=== PATIENT | female | born 1945 | race Caucasian/White ===

== ENCOUNTER 2021-05-07 16:57 | Emergency (ER) | payer MEDICARE, MEDICAID ==
[2021-05-07 18:26] LABS: ALT (SGPT) 16 U/L (8-55); AST (SGOT) 12 U/L (5-34); Albumin 3.6 g/dL (3.4-4.8); Alkaline Phosphatase 146 U/L (40-110); Anion Gap 13 mmol/L (10-20); BUN (Urea Nitrogen) 25 mg/dL (9.8-20.1); Bilirubin, Total 0.5 mg/dL (0.2-1.2); Calc. Creatinine Clearance 0 mL/min (70-130); Calcium 9.4 mg/dL (7.8-10.44); Carbon Dioxide 27 mmol/L (23-31); Chloride 102 mmol/L (98-107); Globulin 3.3 g/dL (2.4-3.5); Glucose 164 mg/dL (83-110); Potassium 4.4 mmol/L (3.5-5.1); Protein, Total 6.9 g/dL (5.8-8.1); Sodium 138 mmol/L (136-145)
[2021-05-07 18:29] LABS: Lipase Less than 4 U/L (8-78)
[2021-05-07 18:32] LABS: Bilirubin Negative (Negative); Blood, Urine Negative (Negative); Glucose, Urine (Dipstick) Negative (Negative); Ketone, Urine Negative (Negative); Leukocyte Trace (Negative); Nitrite Positive (Negative); Protein, Urine (Dipstick) Negative (Neg-Trace); Specific Gravity, Urine 1.025 (1.005-1.030); Urobilinogen 0.2 mg/dL (Less than 2); pH, Urine 6.5 (5.0-9.0)
[2021-05-07 18:35] LABS: Clarity SL HAZY (Clear)
[2021-05-07 18:40] LABS: Bacteria/HPF 4+ HPF (None Seen); RBC/HPF 0-3 HPF (0-3)
[2021-05-07 18:45] LABS: Hemoglobin 12.3 g/dL (12.0-16.0); Lymphocytes 13 % (21-51); MDiff Complete? YES; Mean Corpuscular HGB CONC 31.9 g/dL (32.0-36.0); Mean Corpuscular Hemoglobin 27.1 pg (27.0-31.0); Mean Corpuscular Volume 84.9 fL (78.0-98.0); Mean Platelet Volume 6.6 fL (7.4-10.4); Monocytes 9 % (0-10); Neutrophil 74 % (42-75); Nucleated RBC 1 % (0); Platelet Count 328 thou/uL (130-400); Platelet Morphology Comment Appears Adequate; RBC Distribution Width 15.1 % (11.5-14.5); Reactive Lymphocytes 4 % (0-10); Red Blood Cell (RBC) Count 4.54 mill/uL (4.20-5.40); White Blood Cell (WBC) Count 11.4 thou/uL (4.8-10.8)
[2021-05-07 18:46] LABS: Amphetamine Not Detected (NotDetected); Barbiturates Screen Not Detected (NotDetected); Benzodiazepine Screen Not Detected (NotDetected); Cocaine Metabolite Screen Not Detected (NotDetected); Medtox Control Line Valid? VALID (VALID); Methadone Not Detected (NotDetected); Methamphetamine Not Detected (NotDetected); Opiate Screen Detected (NotDetected); Oxycodone Screen Not Detected (NotDetected); Phencyclidine (PCP) Not Detected (NotDetected); THC/Cannabinoid Screen Not Detected (NotDetected); Tricyclic Screen Not Detected (NotDetected)
[2021-05-07] MEDS ORDERED: HYDROcodone/Acetaminophen 7.5/325 mg Tablet ONE (18:59)
[2021-05-07] MEDS ORDERED: Ketorolac Tromethamine 60 MG/2 ML VIAL ONE (19:01)
[2021-05-07] MEDS ORDERED: Ketorolac Tromethamine 30 MG/ML VIAL ONE (19:02)
[2021-05-08 00:48] LABS: SARS-CoV-2 PCR by NAA Not Detected (NotDetected)
== END 2021-05-07 22:10 | disposition home or self-care (01) ==
LOC: NAV ERS 16:57
DX: S22.42XA Multiple fractures of ribs, left side, initial encounter for closed fracture (principal); S40.021A Contusion of right upper arm, initial encounter; G89.29 Other chronic pain; M54.50 Low back pain, unspecified; M79.605 Pain in left leg; M79.604 Pain in right leg; E66.01 Morbid (severe) obesity due to excess calories; R19.7 Diarrhea, unspecified; R06.2 Wheezing; R53.81 Other malaise; R53.83 Other fatigue; E11.9 Type 2 diabetes mellitus without complications; K21.9 Gastro-esophageal reflux disease without esophagitis; E78.5 Hyperlipidemia, unspecified; E78.00 Pure hypercholesterolemia, unspecified; I10 Essential (primary) hypertension; Z20.822 Contact with and (suspected) exposure to COVID-19; Z87.891 Personal history of nicotine dependence; Z79.01 Long term (current) use of anticoagulants; Z79.899 Other long term (current) drug therapy; W19.XXXA Unspecified fall, initial encounter
CPT/HCPCS: 51701; 80053; 80306; 81003; 81015; 83690; 85025; 87077; 87086; 87186; 96372; J1885; U0003; U0005

== ENCOUNTER 2021-05-08 08:54 | Observation (INO) | payer MEDICARE, MEDICAID ==
[2021-05-08 09:53] LABS: ALT (SGPT) 15 U/L (8-55); AST (SGOT) 20 U/L (5-34); Albumin 3.4 g/dL (3.4-4.8); Alkaline Phosphatase 146 U/L (40-110); Anion Gap 16 mmol/L (10-20); BUN (Urea Nitrogen) 31 mg/dL (9.8-20.1); Bilirubin, Total 0.6 mg/dL (0.2-1.2); CK (CPK) 30 U/L (29-168); Calc. Creatinine Clearance 0 mL/min (70-130); Calcium 9.1 mg/dL (7.8-10.44); Carbon Dioxide 25 mmol/L (23-31); Chloride 102 mmol/L (98-107); Globulin 3.6 g/dL (2.4-3.5); Potassium 4.9 mmol/L (3.5-5.1)
[2021-05-08 09:56] LABS: Band 4 % (5-11); Hemoglobin 11.7 g/dL (12.0-16.0); Lymphocytes 7 % (21-51); MDiff Complete? YES; Mean Corpuscular Hemoglobin 27.2 pg (27.0-31.0); Mean Platelet Volume 7.1 fL (7.4-10.4); Monocytes 5 % (0-10); Neutrophil 82 % (42-75); Platelet Count 319 thou/uL (130-400); RBC Distribution Width 14.8 % (11.5-14.5); RBC Morphology Normal; Reactive Lymphocytes 2 % (0-10); Red Blood Cell (RBC) Count 4.28 mill/uL (4.20-5.40); White Blood Cell (WBC) Count 12.2 thou/uL (4.8-10.8)
[2021-05-08] MEDS ORDERED: Sodium Chloride 0.9% 100 ML ONE (09:57)
[2021-05-08] MEDS ORDERED: Azithromycin 500 MG VIAL ONE ×2 (09:57→09:59)
[2021-05-08] MEDS ORDERED: Sodium Chloride 0.9% 250 ML 250 ML ONE (09:57)
[2021-05-08] MEDS ORDERED: methylPREDNISolone Sod Succ/PF 125 MG/2 ML VIAL ONE (09:57)
[2021-05-08] MEDS ORDERED: cefTRIAXone\\ROCEPHIN 1 GM VIAL ONE (09:57)
[2021-05-08 09:59] LABS: Glucose 220 mg/dL (83-110); Sodium 138 mmol/L (136-145)
[2021-05-08] MEDS ORDERED: FLU VACC QS2021-22(65YR UP)/PF 240 MCG/0.7 ML SYRINGE IM ONE (15:15)
[2021-05-08] MEDS ORDERED: HYDROcodone/Acetaminophen 5/325 mg Tablet PO PRN (16:12)
[2021-05-08] MEDS ORDERED: methylPREDNISolone Sod Succ/PF 125 MG/2 ML VIAL IVP SCH (16:15)
[2021-05-08] MEDS ORDERED: Ondansetron PF 4 MG/2 ML Vial IVP PRN ×3 (16:15→21:28)
[2021-05-08] MEDS ORDERED: Ondansetron ODT 4 MG TAB SL PRN ×2 (16:15→21:25)
[2021-05-08] MEDS ORDERED: Acetaminophen 325 MG TAB PO PRN ×2 (16:15→21:26)
[2021-05-08] MEDS ORDERED: Albuterol Sulfate 2.5 mg/3 ml Neb NEB PRN ×2 (16:18→21:28)
[2021-05-08] MEDS ORDERED: Calcium Carbonate 500 MG ChewTAB PO PRN (18:15)
[2021-05-08] MEDS ORDERED: Senokot S 8.6-50 MG TAB PO PRN (18:15)
[2021-05-08] MEDS ORDERED: Loperamide HCl 2 MG CAP PO PRN ×4 (18:15)
[2021-05-08] MEDS ORDERED: Sodium Chloride 0.65% Nasal 44 ML BOT EA NARE PRN (18:15)
[2021-05-08] MEDS ORDERED: Eucerin (Mineral Oil/Petrolatum,White) 30 gm Jar TOP PRN (18:15)
[2021-05-08] MEDS ORDERED: Dextrose 50% Abboject 50 ML SYRINGE SLOW IVP PRN (18:15)
[2021-05-08] MEDS ORDERED: Artificial Tear Sol 15 ML BOT EA EYE PRN (18:15)
[2021-05-08] MEDS ORDERED: Bisacodyl 10 MG SUPP PR PRN (18:15)
[2021-05-08] MEDS ORDERED: Bisacodyl 5 MG TAB PO PRN (18:15)
[2021-05-08] MEDS: Cefdinir 300 MG CAP PO SCH (20:45)
[2021-05-08] MEDS: Apixaban 5 MG TAB PO SCH (20:46)
[2021-05-08] MEDS: Furosemide 40 MG TAB PO SCH (20:46)
[2021-05-08] MEDS: HumaLOG 300 UNITS/3 ML VIAL SC PRN (20:55)
[2021-05-08] MEDS ORDERED: Gabapentin 300 MG CAP PO SCH (21:00)
[2021-05-08] MEDS: HYDROcodone/Acetaminophen 5/325 mg Tablet PO PRN (22:12)
[2021-05-08] MEDS: methylPREDNISolone Sod Succ/PF 125 MG/2 ML VIAL IVP SCH (23:41)
[2021-05-09] MEDS: methylPREDNISolone Sod Succ/PF 125 MG/2 ML VIAL IVP SCH ×2 (05:31→11:38)
[2021-05-09 06:18] VITALS: BMI 37.5
[2021-05-09 06:23] LABS: #Lymphocytes 0.7 thou/uL (1.20-3.40); #Monocytes 0.2 thou/uL (0.11-0.59); #Neutrophils 12.8 thou/uL (1.40-6.50); %Basophils 0.1 % (0.0-1.0); %Lymphocytes 5.4 % (21.0-51.0); %Monocytes 1.3 % (0.0-10.0); %Neutrophils 93.2 % (42.0-75.0); Hemoglobin 11.9 g/dL (12.0-16.0); Mean Corpuscular HGB CONC 31.7 g/dL (32.0-36.0); Mean Corpuscular Hemoglobin 27.2 pg (27.0-31.0); Mean Corpuscular Volume 85.8 fL (78.0-98.0); Mean Platelet Volume 6.6 fL (7.4-10.4); Platelet Count 302 thou/uL (130-400); RBC Distribution Width 14.7 % (11.5-14.5); Red Blood Cell (RBC) Count 4.38 mill/uL (4.20-5.40); White Blood Cell (WBC) Count 13.7 thou/uL (4.8-10.8)
[2021-05-09 06:39] LABS: ALT (SGPT) 14 U/L (8-55); AST (SGOT) 10 U/L (5-34); Albumin 3.5 g/dL (3.4-4.8); Alkaline Phosphatase 143 U/L (40-110); Anion Gap 16 mmol/L (10-20); BUN (Urea Nitrogen) 27 mg/dL (9.8-20.1); Bilirubin, Total 0.5 mg/dL (0.2-1.2); Calc. Creatinine Clearance 64 mL/min (70-130); Calcium 9.7 mg/dL (7.8-10.44); Carbon Dioxide 25 mmol/L (23-31); Chloride 98 mmol/L (98-107); Globulin 3.4 g/dL (2.4-3.5); Glucose 423 mg/dL (83-110); Potassium 3.7 mmol/L (3.5-5.1); Protein, Total 6.9 g/dL (5.8-8.1)
[2021-05-09 06:49] LABS: Sodium 135 mmol/L (136-145)
[2021-05-09] MEDS: Cefdinir 300 MG CAP PO SCH (08:51)
[2021-05-09] MEDS: Apixaban 5 MG TAB PO SCH (08:51)
[2021-05-09] MEDS: Furosemide 40 MG TAB PO SCH (08:52)
[2021-05-09] MEDS: Pantoprazole 40 MG GRANULES PACKET PO SCH ×2 (08:56→10:32)
[2021-05-09] MEDS ORDERED: Atorvastatin Calcium 20 MG TAB PO SCH (09:00)
[2021-05-09] MEDS ORDERED: Azithromycin 250 MG TAB PO SCH (09:00)
[2021-05-09] MEDS ORDERED: Amlodipine 10 MG TAB PO SCH (09:00)
[2021-05-09] MEDS ORDERED: Non-Formulary Item 1 EACH (Insulin Degludec [Tresiba Flextouch U-200] 200 UNIT/ML Insuln. SC SCH (09:00)
[2021-05-09] MEDS ORDERED: Lantus 1000 UNITS/10 ML VIAL SC SCH (09:00)
[2021-05-09] MEDS ORDERED: Lanolin Alcohol/MO/W.Pet/Ceres 57 GM CR TP PRN (10:45)
[2021-05-09] MEDS: HYDROcodone/Acetaminophen 5/325 mg Tablet PO PRN (11:36)
[2021-05-09] MEDS: HumaLOG 300 UNITS/3 ML VIAL SC PRN (11:38)
[2021-05-09 12:11] VITALS: BP 178/87; TEMP 97.4
== END 2021-05-09 15:50 | disposition home or self-care (01) ==
LOC: NAV ERS 08:54 → NAV ACUTE 12:23
PROVIDERS: ADMIT Family Medicine; ATTEND Family Medicine
DX: J44.1 Chronic obstructive pulmonary disease with (acute) exacerbation (principal); S22.49XA Multiple fractures of ribs, unspecified side, initial encounter for closed fracture; I10 Essential (primary) hypertension; E78.00 Pure hypercholesterolemia, unspecified; E11.40 Type 2 diabetes mellitus with diabetic neuropathy, unspecified; K21.9 Gastro-esophageal reflux disease without esophagitis; E66.9 Obesity, unspecified; Z68.37 Body mass index [BMI] 37.0-37.9, adult; Z79.01 Long term (current) use of anticoagulants; Z79.4 Long term (current) use of insulin; Z79.899 Other long term (current) drug therapy; Z87.891 Personal history of nicotine dependence
CPT/HCPCS: 36415; 36416; 71045; 71046; 80053; 82550; 83605; 83880; 84484; 85025; 87040; 93005; 94760; 96376; G0378; J0456; J0696; J1815; J2930; J3490; J7050; J7620

== ENCOUNTER 2021-06-07 05:55 | Emergency (ER) | payer MEDICARE, MEDICAID ==
[2021-06-07 07:15] LABS: #Eosinphils 0.2 thou/uL (0.0-0.7); #Monocytes 0.7 thou/uL (0.11-0.59); #Neutrophils 8.6 thou/uL (1.40-6.50); %Basophils 0.4 % (0.0-1.0); %Eosinophils 1.6 % (0.0-10.0); %Lymphocytes 17.4 % (21.0-51.0); %Monocytes 5.9 % (0.0-10.0); %Neutrophils 74.7 % (42.0-75.0); Hemoglobin 10.8 g/dL (12.0-16.0); Mean Corpuscular HGB CONC 30.7 g/dL (32.0-36.0); Mean Corpuscular Hemoglobin 26.5 pg (27.0-31.0); Mean Corpuscular Volume 86.3 fL (78.0-98.0); Mean Platelet Volume 6.6 fL (7.4-10.4); Platelet Count 314 thou/uL (130-400); RBC Distribution Width 14.6 % (11.5-14.5); Red Blood Cell (RBC) Count 4.07 mill/uL (4.20-5.40); White Blood Cell (WBC) Count 11.5 thou/uL (4.8-10.8)
[2021-06-07 07:30] LABS: ALT (SGPT) 12 U/L (8-55); AST (SGOT) 7 U/L (5-34); Albumin 3.4 g/dL (3.4-4.8); Alkaline Phosphatase 162 U/L (40-110); Anion Gap 13 mmol/L (10-20); BUN (Urea Nitrogen) 30 mg/dL (9.8-20.1); Bilirubin, Total 0.3 mg/dL (0.2-1.2); Calc. Creatinine Clearance 0 mL/min (70-130); Calcium 9.2 mg/dL (7.8-10.44); Carbon Dioxide 27 mmol/L (23-31); Chloride 100 mmol/L (98-107); Glucose 359 mg/dL (83-110); Lipase 11 U/L (8-78); Potassium 4.2 mmol/L (3.5-5.1); Protein, Total 6.4 g/dL (5.8-8.1); Sodium 136 mmol/L (136-145)
[2021-06-07] MEDS ORDERED: Fentanyl 100 MCG/2 ML VIAL ONE (07:39)
[2021-06-07] MEDS ORDERED: Sodium Chloride 0.9% 500 ML ONE (07:40)
[2021-06-07] MEDS ORDERED: Iopamidol 370 76% 100 ML VIAL ONE (09:00)
[2021-06-07 09:48] LABS: Bilirubin Negative (Negative); Blood, Urine Negative (Negative); Clarity Clear (Clear); Glucose, Urine (Dipstick) 500 mg/dL (Negative); Ketone, Urine Negative (Negative); Leukocyte Negative (Negative); Nitrite Negative (Negative); Protein, Urine (Dipstick) Negative (Neg-Trace); Urobilinogen 0.2 mg/dL (Less than 2); pH, Urine 5.5 (5.0-9.0)
== END 2021-06-07 13:00 | disposition home or self-care (01) ==
LOC: NAV ERS 05:55
DX: M54.50 Low back pain, unspecified (principal); R10.9 Unspecified abdominal pain; E11.9 Type 2 diabetes mellitus without complications; K21.9 Gastro-esophageal reflux disease without esophagitis; E78.5 Hyperlipidemia, unspecified; E78.00 Pure hypercholesterolemia, unspecified; I10 Essential (primary) hypertension; R53.1 Weakness; Z79.01 Long term (current) use of anticoagulants; Z79.899 Other long term (current) drug therapy; Z87.891 Personal history of nicotine dependence
CPT/HCPCS: 51701; 74177; 80053; 81003; 83690; 85025; 96374; J3010; J7030; Q9967

== ENCOUNTER 2021-07-27 11:54 | Emergency (ER) | payer MEDICARE, MEDICAID ==
[2021-07-27] MEDS ORDERED: Fentanyl 100 MCG/2 ML VIAL ONE (13:33)
== END 2021-07-27 15:58 | disposition home or self-care (01) ==
LOC: NAV ERS 11:54
DX: M54.50 Low back pain, unspecified (principal); E11.9 Type 2 diabetes mellitus without complications; K21.9 Gastro-esophageal reflux disease without esophagitis; E78.5 Hyperlipidemia, unspecified; I10 Essential (primary) hypertension; Z87.891 Personal history of nicotine dependence; Z79.899 Other long term (current) drug therapy; Z79.01 Long term (current) use of anticoagulants
CPT/HCPCS: 72100; 96374; J3010

== ENCOUNTER 2021-08-24 03:11 | Emergency (ER) | payer MEDICARE, MEDICAID ==
[2021-08-24] MEDS ORDERED: Acetaminophen 500 MG TAB ONE (03:41)
[2021-08-24 03:46] LABS: #Eosinphils 0.1 thou/uL (0.0-0.7); #Lymphocytes 1.1 thou/uL (1.20-3.40); #Monocytes 0.6 thou/uL (0.11-0.59); %Basophils 0.3 % (0.0-1.0); %Eosinophils 1.3 % (0.0-10.0); %Lymphocytes 11.1 % (21.0-51.0); %Neutrophils 81.3 % (42.0-75.0); Hemoglobin 10.6 g/dL (12.0-16.0); Mean Corpuscular HGB CONC 31.2 g/dL (32.0-36.0); Mean Corpuscular Hemoglobin 25.5 pg (27.0-31.0); Mean Corpuscular Volume 81.7 fL (78.0-98.0); Mean Platelet Volume 7.9 fL (7.4-10.4); Platelet Count 185 thou/uL (130-400); RBC Distribution Width 16.5 % (11.5-14.5); Red Blood Cell (RBC) Count 4.17 mill/uL (4.20-5.40); White Blood Cell (WBC) Count 9.9 thou/uL (4.8-10.8)
[2021-08-24 03:59] LABS: INR-International Normal Ratio 1.5; Prothrombin Time 18.6 sec (12.0-14.7)
[2021-08-24 04:00] LABS: PTT 45.6 sec (22.9-36.1)
[2021-08-24 04:04] LABS: Anion Gap 19 mmol/L (10-20); BUN (Urea Nitrogen) 21 mg/dL (9.8-20.1); Calc. Creatinine Clearance 0 mL/min (70-130); Calcium 9.3 mg/dL (7.8-10.44); Carbon Dioxide 16 mmol/L (23-31); Chloride 108 mmol/L (98-107); Glucose 176 mg/dL (83-110); Potassium 3.6 mmol/L (3.5-5.1); Sodium 139 mmol/L (136-145)
[2021-08-24 05:38] LABS: Base Excess-Venous -1.7 mmol/L (-2.0 to 3.0); CO2 Tension (PvCO2) 37.8 mmHg (42.0-51.0); Hemoglobin - Calc 10.6 g/dL (12.0-16.0)
[2021-08-24 05:39] LABS: Calcium, Ionized 1.05 mmol/L (1.15-1.33); Chloride 106 mmol/L (98-107); Potassium 3.7 mmol/L (3.5-5.1); Sodium 142 mmol/L (138-145); T. Carbon Dioxide 24.1 mmol/L (22.0-28.0)
== END 2021-08-24 06:12 | disposition home or self-care (01) ==
LOC: NAV ERS 03:11
DX: S42.212A Unspecified displaced fracture of surgical neck of left humerus, initial encounter for closed fracture (principal); S70.02XA Contusion of left hip, initial encounter; S80.212A Abrasion, left knee, initial encounter; S80.211A Abrasion, right knee, initial encounter; I10 Essential (primary) hypertension; E78.5 Hyperlipidemia, unspecified; E78.00 Pure hypercholesterolemia, unspecified; E11.9 Type 2 diabetes mellitus without complications; K21.9 Gastro-esophageal reflux disease without esophagitis; W06.XXXA Fall from bed, initial encounter; Z87.891 Personal history of nicotine dependence; Z79.01 Long term (current) use of anticoagulants; Z79.899 Other long term (current) drug therapy
CPT/HCPCS: 70450; 72170; 80048; 82330; 82803; 85025; 85610; 85730

== ENCOUNTER 2021-08-27 16:59 | Emergency (ER) | payer MEDICARE, MEDICAID ==
[~2021-08-27 16:59] MED LIST: Iopamidol 370 76% 100 ML VIAL ONE
[2021-08-27] MEDS ORDERED: Acetaminophen 500 MG TAB ONE (18:37)
== END 2021-08-27 19:55 | disposition home or self-care (01) ==
LOC: NAV ERS 16:59
DX: M54.50 Low back pain, unspecified (principal); G89.29 Other chronic pain; I10 Essential (primary) hypertension; E11.9 Type 2 diabetes mellitus without complications; K21.9 Gastro-esophageal reflux disease without esophagitis; E78.5 Hyperlipidemia, unspecified; E78.00 Pure hypercholesterolemia, unspecified; J44.9 Chronic obstructive pulmonary disease, unspecified; Z79.01 Long term (current) use of anticoagulants; Z79.899 Other long term (current) drug therapy
CPT/HCPCS: 74177; 99283; Q9967

== ENCOUNTER 2021-08-30 00:27 | Emergency (ER) | payer MEDICARE, MEDICAID ==
[2021-08-30 01:31] LABS: #Monocytes 0.8 thou/uL (0.11-0.59); #Neutrophils 4.3 thou/uL (1.40-6.50); %Basophils 1.2 % (0.0-1.0); %Eosinophils 6.1 % (0.0-10.0); %Lymphocytes 21.8 % (21.0-51.0); %Neutrophils 59.9 % (42.0-75.0); Hemoglobin 11.7 g/dL (12.0-16.0); Manual Diff?? NO; Mean Corpuscular HGB CONC 30.2 g/dL (32.0-36.0); Mean Corpuscular Hemoglobin 24.5 pg (27.0-31.0); Mean Corpuscular Volume 81.2 fL (78.0-98.0); Mean Platelet Volume 6.8 fL (7.4-10.4); Platelet Count 311 thou/uL (130-400); RBC Distribution Width 16.7 % (11.5-14.5); Red Blood Cell (RBC) Count 4.77 mill/uL (4.20-5.40); White Blood Cell (WBC) Count 7.2 thou/uL (4.8-10.8)
[2021-08-30 01:32] LABS: #Basophils 0.1 thou/uL (0.0-0.2); #Eosinphils 0.4 thou/uL (0.0-0.7); MDiff Complete? YES
[2021-08-30] MEDS ORDERED: Sodium Chloride 0.9% 1,000 ML ONE (01:43)
[2021-08-30 01:59] LABS: BUN (Urea Nitrogen) 19 mg/dL (9.8-20.1); Carbon Dioxide 23 mmol/L (23-31); Chloride 105 mmol/L (98-107); Potassium 4.9 mmol/L (3.5-5.1); Sodium 142 mmol/L (136-145)
[2021-08-30 02:00] LABS: ALT (SGPT) 21 U/L (8-55); AST (SGOT) 31 U/L (5-34); Albumin 4.1 g/dL (3.4-4.8); Alkaline Phosphatase 141 U/L (40-110); Anion Gap 14 mmol/L (10-20); Bilirubin, Total 0.6 mg/dL (0.2-1.2); Calc. Creatinine Clearance 0 mL/min (70-130); Calcium 9.6 mg/dL (7.8-10.44); Globulin 3.6 g/dL (2.4-3.5); Glucose 136 mg/dL (83-110); Lipase 4 U/L (8-78); Protein, Total 7.7 g/dL (5.8-8.1)
[2021-08-30 02:08] LABS: Bilirubin Small (Negative); Blood, Urine Trace (Negative); Clarity Cloudy (Clear); Glucose, Urine (Dipstick) Negative (Negative); Ketone, Urine Negative (Negative); Leukocyte Negative (Negative); Nitrite Negative (Negative); Protein, Urine (Dipstick) 30 mg/dL (Neg-Trace); Specific Gravity, Urine 1.029 (1.002-1.036); Urobilinogen 0.2 mg/dL (Less than 2); pH, Urine 5.5 (5.0-9.0)
[2021-08-30 02:09] LABS: Bacteria/HPF None Seen HPF (None Seen); RBC/HPF 0-3 HPF (0-3); Yeast-Budding 3+ HPF (None Seen)
[2021-08-30] MEDS ORDERED: Iopamidol 370 76% 100 ML VIAL ONE (09:00)
== END 2021-08-30 04:20 | disposition home or self-care (01) ==
LOC: NAV ERS 00:27
DX: K44.9 Diaphragmatic hernia without obstruction or gangrene (principal); I10 Essential (primary) hypertension; G89.29 Other chronic pain; M54.50 Low back pain, unspecified; R11.0 Nausea; J44.9 Chronic obstructive pulmonary disease, unspecified; K21.9 Gastro-esophageal reflux disease without esophagitis; E78.5 Hyperlipidemia, unspecified; E78.00 Pure hypercholesterolemia, unspecified; Z79.01 Long term (current) use of anticoagulants; Z79.899 Other long term (current) drug therapy
CPT/HCPCS: 51701; 81003; 81015; 83605; 83690; 87086; J7050; Q9967

== ENCOUNTER 2021-09-01 05:02 | Inpatient (IN) | payer MEDICARE, MEDICAID ==
[2021-09-01] MEDS ORDERED: Ondansetron ODT 4 MG TAB ONE (06:04)
[2021-09-01 06:17] LABS: Bilirubin Negative (Negative); Blood, Urine Trace (Negative); Clarity Clear (Clear); Glucose, Urine (Dipstick) Negative (Negative); Ketone, Urine Negative (Negative); Leukocyte Trace (Negative); Nitrite Positive (Negative); Protein, Urine (Dipstick) Trace mg/dL (Neg-Trace); Urobilinogen 0.2 mg/dL (Less than 2); pH, Urine 5.5 (5.0-9.0)
[2021-09-01 06:23] LABS: Bacteria/HPF 3+ HPF (None Seen); Specific Gravity, Urine 1.023 (1.002-1.036)
[2021-09-01 06:50] LABS: #Basophils 0.1 thou/uL (0.0-0.2); #Eosinphils 0.3 thou/uL (0.0-0.7); #Lymphocytes 1.2 thou/uL (1.20-3.40); #Monocytes 0.5 thou/uL (0.11-0.59); #Neutrophils 4.4 thou/uL (1.40-6.50); %Basophils 0.9 % (0.0-1.0); %Eosinophils 4.4 % (0.0-10.0); %Lymphocytes 18.1 % (21.0-51.0); %Monocytes 7.6 % (0.0-10.0); Hemoglobin 11.6 g/dL (12.0-16.0); Mean Corpuscular HGB CONC 29.8 g/dL (32.0-36.0); Mean Corpuscular Hemoglobin 24.8 pg (27.0-31.0); Mean Corpuscular Volume 83.4 fL (78.0-98.0); Mean Platelet Volume 6.2 fL (7.4-10.4); Platelet Count 209 thou/uL (130-400); RBC Distribution Width 17.4 % (11.5-14.5); Red Blood Cell (RBC) Count 4.65 mill/uL (4.20-5.40); White Blood Cell (WBC) Count 6.4 thou/uL (4.8-10.8)
[2021-09-01 06:54] LABS: ALT (SGPT) 17 U/L (8-55); AST (SGOT) 20 U/L (5-34); Albumin 3.8 g/dL (3.4-4.8); Alkaline Phosphatase 122 U/L (40-110); Anion Gap 15 mmol/L (10-20); BUN (Urea Nitrogen) 19 mg/dL (9.8-20.1); Bilirubin, Total 0.6 mg/dL (0.2-1.2); Calc. Creatinine Clearance 0 mL/min (70-130); Calcium 9.3 mg/dL (7.8-10.44); Carbon Dioxide 24 mmol/L (23-31); Chloride 110 mmol/L (98-107); Glucose 125 mg/dL (83-110); Potassium 3.8 mmol/L (3.5-5.1); Protein, Total 6.8 g/dL (5.8-8.1); Sodium 145 mmol/L (136-145)
[2021-09-01] MEDS ORDERED: Nitrofurantoin Macrocrystal 50 MG CAP ONE (07:06)
[2021-09-01 07:20] LABS: Anisocytosis MODERATE=16-30 cells (100X) (0-5/hpf); Hypochromia SLIGHT = 6-15 cells (100X) (0-5/hpf); MDiff Complete? YES; Platelet Morphology Comment Appears Adequate
[2021-09-01 08:02] LABS: SARS-CoV-2 NAA Rapid Test Not Detected (NotDetected)
[2021-09-01] MEDS ORDERED: Ondansetron ODT 4 MG TAB PO PRN ×2 (08:13→09:45)
[2021-09-01 08:47] VITALS: BMI 33.5
[2021-09-01] MEDS ORDERED: Apixaban 5 MG TAB PO SCH (09:00)
[2021-09-01] MEDS ORDERED: traMADol HCl 50 MG TAB PO PRN ×2 (09:41)
[2021-09-01] MEDS ORDERED: Guaifenesin DM 100-10/5 ML UDCUP PO PRN (09:45)
[2021-09-01] MEDS ORDERED: Loperamide HCl 2 MG CAP PO PRN ×2 (09:45)
[2021-09-01] MEDS ORDERED: Promethazine HCl 25 MG SUPP PR PRN (09:45)
[2021-09-01] MEDS ORDERED: Dextrose 50% Abboject 50 ML SYRINGE SLOW IVP PRN (09:45)
[2021-09-01] MEDS ORDERED: Ondansetron PF 4 MG/2 ML Vial IVP PRN (09:45)
[2021-09-01] MEDS ORDERED: traMADol HCl 50 MG TAB PO SCH (09:45)
[2021-09-01] MEDS ORDERED: Acetaminophen 325 MG TAB PO PRN (09:45)
[2021-09-01] MEDS ORDERED: Bisacodyl 5 MG TAB PO PRN (09:45)
[2021-09-01] MEDS ORDERED: Cepastat Lozenges 1 LOZ PO PRN (09:45)
[2021-09-01] MEDS ORDERED: Artificial Tear Sol 15 ML BOT EA EYE PRN (09:45)
[2021-09-01] MEDS ORDERED: Sodium Chloride 0.65% Nasal 44 ML BOT EA NARE PRN (09:45)
[2021-09-01] MEDS ORDERED: Benzonatate 100 MG CAP PO PRN (09:45)
[2021-09-01] MEDS ORDERED: Senokot S 8.6-50 MG TAB PO PRN (09:45)
[2021-09-01] MEDS: Amlodipine 10 MG TAB PO SCH (09:45)
[2021-09-01] MEDS ORDERED: Acetaminophen 650 MG Suppository PR PRN (09:45)
[2021-09-01] MEDS: Apixaban 5 MG TAB PO SCH ×4 (09:45→20:49)
[2021-09-01] MEDS: Nitrofurantoin Monohyd/M-Cryst 100 MG CAP PO SCH ×2 (09:45→20:49)
[2021-09-01] MEDS: Furosemide 40 MG TAB PO SCH ×2 (09:45→14:48)
[2021-09-01] MEDS ORDERED: Calcium Carbonate 500 MG ChewTAB PO PRN (09:45)
[2021-09-01] MEDS ORDERED: Bisacodyl 10 MG SUPP PR PRN (09:45)
[2021-09-01] MEDS: HYDROcodone/Acetaminophen 5/325 mg Tablet PO PRN ×2 (12:50→16:55)
[2021-09-01] MEDS: HumaLOG 300 UNITS/3 ML VIAL SC PRN ×2 (13:04→16:57)
[2021-09-01] MEDS: Mag-Al Plus 1200 MG/1200 MG/120 MG/30 ML UDCUP PO SCH (16:55)
[2021-09-01] MEDS: Mometasone/Formoterol 200/5 60 PUFF INH SCH (17:02)
[2021-09-01] MEDS: Famotidine 20 MG TAB PO SCH (20:48)
[2021-09-01] MEDS: Atorvastatin Calcium 20 MG TAB PO SCH (20:49)
[2021-09-01] MEDS: Gabapentin 300 MG CAP PO SCH (20:49)
[2021-09-01] MEDS ORDERED: Famotidine/PF 20 mg/2ml Vial SLOW IVP SCH (21:00)
[2021-09-01] MEDS ORDERED: Ondansetron ODT 4 MG TAB SL PRN (22:45)
[2021-09-02] MEDS: Mometasone/Formoterol 200/5 60 PUFF INH SCH ×2 (05:27→17:23)
[2021-09-02 07:52] LABS: Hemoglobin 10.7 g/dL (12.0-16.0); Mean Corpuscular Hemoglobin 25.3 pg (27.0-31.0); Mean Corpuscular Volume 81.7 fL (78.0-98.0); Mean Platelet Volume 6.3 fL (7.4-10.4); Platelet Count 422 thou/uL (130-400); Red Blood Cell (RBC) Count 4.23 mill/uL (4.20-5.40); White Blood Cell (WBC) Count 6.5 thou/uL (4.8-10.8)
[2021-09-02 07:56] LABS: %Basophils 1.1 % (0.0-1.0); %Eosinophils 9.3 % (0.0-10.0); %Lymphocytes 28.2 % (21.0-51.0); %Monocytes 10.9 % (0.0-10.0); %Neutrophils 50.5 % (42.0-75.0)
[2021-09-02 07:59] LABS: #Lymphocytes 1.8 thou/uL (1.20-3.40); #Neutrophils 3.3 thou/uL (1.40-6.50)
[2021-09-02 08:00] LABS: #Basophils 0.1 thou/uL (0.0-0.2); #Eosinphils 0.6 thou/uL (0.0-0.7); #Monocytes 0.7 thou/uL (0.11-0.59)
[2021-09-02 08:02] LABS: Anion Gap 17 mmol/L (10-20); BUN (Urea Nitrogen) 20 mg/dL (9.8-20.1); Calc. Creatinine Clearance 88 mL/min (70-130); Calcium 9.3 mg/dL (7.8-10.44); Carbon Dioxide 27 mmol/L (23-31); Chloride 102 mmol/L (98-107); Glucose 97 mg/dL (83-110); Potassium 3.8 mmol/L (3.5-5.1); Sodium 142 mmol/L (136-145)
[2021-09-02] MEDS: Amlodipine 10 MG TAB PO SCH (08:39)
[2021-09-02] MEDS: Apixaban 5 MG TAB PO SCH ×2 (08:39→20:34)
[2021-09-02] MEDS: Furosemide 40 MG TAB PO SCH ×2 (08:39→13:57)
[2021-09-02] MEDS: Nitrofurantoin Monohyd/M-Cryst 100 MG CAP PO SCH ×2 (08:40→20:33)
[2021-09-02] MEDS: Mag-Al Plus 1200 MG/1200 MG/120 MG/30 ML UDCUP PO SCH ×3 (08:40→17:19)
[2021-09-02] MEDS: Lantus 1000 UNITS/10 ML VIAL SC SCH (08:40)
[2021-09-02] MEDS: Famotidine 20 MG TAB PO SCH ×2 (08:43→20:34)
[2021-09-02] MEDS ORDERED: Non-Formulary Item 1 EACH (Insulin Degludec [Tresiba Flextouch U-200] 200 UNIT/ML Insuln. SQ SCH (09:00)
[2021-09-02] MEDS: HYDROcodone/Acetaminophen 5/325 mg Tablet PO PRN (09:33)
[2021-09-02] MEDS: Gabapentin 300 MG CAP PO SCH (20:34)
[2021-09-02] MEDS: Atorvastatin Calcium 20 MG TAB PO SCH (20:34)
[2021-09-03] MEDS: Mometasone/Formoterol 200/5 60 PUFF INH SCH ×2 (05:44→17:58)
[2021-09-03 06:52] LABS: Anion Gap 17 mmol/L (10-20); BUN (Urea Nitrogen) 24 mg/dL (9.8-20.1); Calc. Creatinine Clearance 81 mL/min (70-130); Calcium 9.4 mg/dL (7.8-10.44); Carbon Dioxide 28 mmol/L (23-31); Chloride 101 mmol/L (98-107); Glucose 105 mg/dL (83-110); Potassium 4.1 mmol/L (3.5-5.1); Sodium 142 mmol/L (136-145)
[2021-09-03 07:07] LABS: Mean Corpuscular HGB CONC 30.2 g/dL (32.0-36.0); Mean Corpuscular Hemoglobin 24.9 pg (27.0-31.0); Mean Corpuscular Volume 82.2 fL (78.0-98.0); Platelet Count 475 thou/uL (130-400); RBC Distribution Width 17.4 % (11.5-14.5); Red Blood Cell (RBC) Count 4.43 mill/uL (4.20-5.40); White Blood Cell (WBC) Count 7.4 thou/uL (4.8-10.8)
[2021-09-03 07:10] LABS: #Basophils 0.1 thou/uL (0.0-0.2); #Eosinphils 0.6 thou/uL (0.0-0.7); #Lymphocytes 1.8 thou/uL (1.20-3.40); #Monocytes 0.7 thou/uL (0.11-0.59); #Neutrophils 4.6 thou/uL (1.40-6.50); %Basophils 0.9 % (0.0-1.0); %Eosinophils 6.8 % (0.0-10.0); %Lymphocytes 22.4 % (21.0-51.0); %Monocytes 8.1 % (0.0-10.0); %Neutrophils 62.1 % (42.0-75.0)
[2021-09-03] MEDS: Mag-Al Plus 1200 MG/1200 MG/120 MG/30 ML UDCUP PO SCH ×3 (07:24→17:58)
[2021-09-03] MEDS: Apixaban 5 MG TAB PO SCH ×2 (08:50→20:39)
[2021-09-03] MEDS: Lantus 1000 UNITS/10 ML VIAL SC SCH (08:50)
[2021-09-03] MEDS: Nitrofurantoin Monohyd/M-Cryst 100 MG CAP PO SCH ×2 (08:50→20:38)
[2021-09-03] MEDS: Famotidine 20 MG TAB PO SCH ×2 (08:50→20:38)
[2021-09-03] MEDS: Furosemide 40 MG TAB PO SCH ×2 (08:50→13:47)
[2021-09-03] MEDS: Amlodipine 10 MG TAB PO SCH (08:50)
[2021-09-03] MEDS: HYDROcodone/Acetaminophen 5/325 mg Tablet PO PRN ×2 (10:14→22:57)
[2021-09-03] MEDS: HumaLOG 300 UNITS/3 ML VIAL SC PRN (11:26)
[2021-09-03] MEDS: Gabapentin 300 MG CAP PO SCH (20:38)
[2021-09-03] MEDS: Atorvastatin Calcium 20 MG TAB PO SCH (20:39)
[2021-09-04] MEDS: Mometasone/Formoterol 200/5 60 PUFF INH SCH ×2 (05:56→17:48)
[2021-09-04 06:41] LABS: Anion Gap 17 mmol/L (10-20); BUN (Urea Nitrogen) 25 mg/dL (9.8-20.1); Calc. Creatinine Clearance 85 mL/min (70-130); Calcium 9.3 mg/dL (7.8-10.44); Chloride 101 mmol/L (98-107); Glucose 101 mg/dL (83-110); Potassium 4.4 mmol/L (3.5-5.1); Sodium 140 mmol/L (136-145)
[2021-09-04 07:11] LABS: Hemoglobin 11.8 g/dL (12.0-16.0); Mean Corpuscular HGB CONC 31.4 g/dL (32.0-36.0); Mean Corpuscular Hemoglobin 25.4 pg (27.0-31.0); Mean Corpuscular Volume 80.8 fL (78.0-98.0); Mean Platelet Volume 5.9 fL (7.4-10.4); Platelet Count 443 thou/uL (130-400); RBC Distribution Width 16.9 % (11.5-14.5); Red Blood Cell (RBC) Count 4.65 mill/uL (4.20-5.40); White Blood Cell (WBC) Count 7.1 thou/uL (4.8-10.8)
[2021-09-04 07:15] LABS: Carbon Dioxide 26 mmol/L (23-31)
[2021-09-04 07:17] LABS: #Eosinphils 0.4 thou/uL (0.0-0.7); #Lymphocytes 1.9 thou/uL (1.20-3.40); #Monocytes 0.8 thou/uL (0.11-0.59); %Eosinophils 5.1 % (0.0-10.0); %Lymphocytes 26.7 % (21.0-51.0); %Monocytes 10.7 % (0.0-10.0); %Neutrophils 56.5 % (42.0-75.0)
[2021-09-04 07:18] LABS: #Basophils 0.1 thou/uL (0.0-0.2)
[2021-09-04] MEDS: Amlodipine 10 MG TAB PO SCH (08:47)
[2021-09-04] MEDS: Nitrofurantoin Monohyd/M-Cryst 100 MG CAP PO SCH ×2 (08:47→20:20)
[2021-09-04] MEDS: Mag-Al Plus 1200 MG/1200 MG/120 MG/30 ML UDCUP PO SCH ×3 (08:47→17:48)
[2021-09-04] MEDS: Famotidine 20 MG TAB PO SCH ×2 (08:48→20:20)
[2021-09-04] MEDS: Apixaban 5 MG TAB PO SCH ×2 (08:48→20:20)
[2021-09-04] MEDS: Furosemide 40 MG TAB PO SCH ×2 (08:48→14:36)
[2021-09-04] MEDS: Lantus 1000 UNITS/10 ML VIAL SC SCH (08:48)
[2021-09-04] MEDS: HYDROcodone/Acetaminophen 5/325 mg Tablet PO PRN ×2 (12:12→20:19)
[2021-09-04] MEDS: Atorvastatin Calcium 20 MG TAB PO SCH (20:20)
[2021-09-04] MEDS: Gabapentin 300 MG CAP PO SCH (20:21)
[2021-09-05] MEDS: Mometasone/Formoterol 200/5 60 PUFF INH SCH ×2 (05:12→18:30)
[2021-09-05 07:19] LABS: #Basophils 0.1 thou/uL (0.0-0.2); #Eosinphils 0.4 thou/uL (0.0-0.7); #Lymphocytes 1.7 thou/uL (1.20-3.40); #Monocytes 10.1 thou/uL (0.11-0.59); #Neutrophils 3.6 thou/uL (1.40-6.50); %Basophils 1.2 % (0.0-1.0); %Eosinophils 5.9 % (0.0-10.0); %Lymphocytes 24.3 % (21.0-51.0); %Monocytes 15.7 % (0.0-10.0); %Neutrophils 52.8 % (42.0-75.0); Hemoglobin 12.5 g/dL (12.0-16.0); Mean Corpuscular HGB CONC 30.4 g/dL (32.0-36.0); Mean Corpuscular Hemoglobin 25.3 pg (27.0-31.0); Mean Corpuscular Volume 83.2 fL (78.0-98.0); Mean Platelet Volume 6.2 fL (7.4-10.4); Platelet Count 422 thou/uL (130-400); RBC Distribution Width 17.4 % (11.5-14.5); Red Blood Cell (RBC) Count 4.95 mill/uL (4.20-5.40); White Blood Cell (WBC) Count 6.8 thou/uL (4.8-10.8)
[2021-09-05 08:07] LABS: ALT (SGPT) 13 U/L (8-55); AST (SGOT) 20 U/L (5-34); Alkaline Phosphatase 128 U/L (40-110); Anion Gap 17 mmol/L (10-20); BUN (Urea Nitrogen) 28 mg/dL (9.8-20.1); Bilirubin, Total 0.9 mg/dL (0.2-1.2); Calc. Creatinine Clearance 69 mL/min (70-130); Calcium 9.7 mg/dL (7.8-10.44); Carbon Dioxide 31 mmol/L (23-31); Chloride 99 mmol/L (98-107); Globulin 3.4 g/dL (2.4-3.5); Glucose 104 mg/dL (83-110); Potassium 4.3 mmol/L (3.5-5.1); Protein, Total 7.4 g/dL (5.8-8.1); Sodium 143 mmol/L (136-145)
[2021-09-05] MEDS: Mag-Al Plus 1200 MG/1200 MG/120 MG/30 ML UDCUP PO SCH ×3 (08:18→16:46)
[2021-09-05] MEDS: Amlodipine 10 MG TAB PO SCH (08:18)
[2021-09-05] MEDS: Apixaban 5 MG TAB PO SCH (08:19)
[2021-09-05] MEDS: Furosemide 40 MG TAB PO SCH ×2 (08:19→14:02)
[2021-09-05] MEDS: Famotidine 20 MG TAB PO SCH (08:19)
[2021-09-05] MEDS: HYDROcodone/Acetaminophen 5/325 mg Tablet PO PRN ×2 (08:19→18:51)
[2021-09-05] MEDS: Lantus 1000 UNITS/10 ML VIAL SC SCH (08:21)
[2021-09-05] MEDS ORDERED: Fluconazole 100 MG TAB PO SCH (09:00)
[2021-09-05] MEDS ORDERED: Amoxicillin/Potassium Clav 875 MG TAB PO SCH (09:00)
[2021-09-05] MEDS: HumaLOG 300 UNITS/3 ML VIAL SC PRN (12:16)
[2021-09-05 18:05] VITALS: BP 145/78; TEMP 98.6
== END 2021-09-05 19:30 | disposition hospice, home (50) | DRG 689 ==
LOC: NAV ERS 05:02 → OBSVTOIN 07:45 → INTOOBSV 07:45 → NAV ACUTE 07:45
PROVIDERS: ADMIT Family Medicine; ATTEND Family Medicine
DX: N30.00 Acute cystitis without hematuria (principal); J69.0 Pneumonitis due to inhalation of food and vomit; G89.29 Other chronic pain; J44.9 Chronic obstructive pulmonary disease, unspecified; K21.9 Gastro-esophageal reflux disease without esophagitis; E78.5 Hyperlipidemia, unspecified; E78.00 Pure hypercholesterolemia, unspecified; I10 Essential (primary) hypertension; F41.9 Anxiety disorder, unspecified; Z20.822 Contact with and (suspected) exposure to COVID-19; E11.42 Type 2 diabetes mellitus with diabetic polyneuropathy; R13.10 Dysphagia, unspecified; Z86.718 Personal history of other venous thrombosis and embolism; Z87.891 Personal history of nicotine dependence; Z91.81 History of falling; Z90.49 Acquired absence of other specified parts of digestive tract; Z90.710 Acquired absence of both cervix and uterus; Z88.5 Allergy status to narcotic agent; Z79.899 Other long term (current) drug therapy; Z91.14 Patient's other noncompliance with medication regimen; Z51.5 Encounter for palliative care
CPT/HCPCS: 36415; 36416; 51701; 71045; 80048; 80053; 81003; 81015; 85025; J1815; Q0162; U0002

== ENCOUNTER 2022-02-22 07:41 | Emergency (ER) | payer MEDICARE, MEDICAID ==
[2022-02-22] MEDS ORDERED: Ondansetron ODT 4 MG TAB ONE (08:27)
[2022-02-22] MEDS ORDERED: HYDROcodone/Acetaminophen 5/325 mg Tablet ONE (08:33)
[2022-02-22] MEDS ORDERED: Sodium Chloride 0.9% 1,000 ML ONE (09:19)
[2022-02-22] MEDS ORDERED: Cephalexin 250 MG CAP ONE (11:47)
[2022-02-22 13:28] LABS: ALT (SGPT) 12 U/L (8-55); AST (SGOT) 10 U/L (5-34); Albumin 3.8 g/dL (3.4-4.8); Alkaline Phosphatase 90 U/L (40-110); Anion Gap 16 mmol/L (10-20); BUN (Urea Nitrogen) 24 mg/dL (9.8-20.1); Bilirubin, Total 0.6 mg/dL (0.2-1.2); Calc. Creatinine Clearance 0 mL/min (70-130); Calcium 9.7 mg/dL (7.8-10.44); Carbon Dioxide 23 mmol/L (23-31); Chloride 105 mmol/L (98-107); Estimated GFR 69; Globulin 2.7 g/dL (2.4-3.5); Lipase 4 U/L (8-78); Potassium 4.1 mmol/L (3.5-5.1); Protein, Total 6.5 g/dL (5.8-8.1); Sodium 140 mmol/L (136-145)
[2022-02-22 13:29] LABS: Glucose 160 mg/dL (83-110)
[2022-02-22 13:30] LABS: #Eosinphils 0.2 thou/uL (0.0-0.7); #Lymphocytes 1.9 thou/uL (1.20-3.40); #Monocytes 0.8 thou/uL (0.11-0.59); #Neutrophils 5.9 thou/uL (1.40-6.50); %Basophils 0.3 % (0.0-1.0); %Eosinophils 2.4 % (0.0-10.0); %Lymphocytes 21.4 % (21.0-51.0); %Monocytes 8.6 % (0.0-10.0); %Neutrophils 67.2 % (42.0-75.0); Hemoglobin 10.1 g/dL (12.0-16.0); Mean Corpuscular HGB CONC 29.9 g/dL (32.0-36.0); Mean Corpuscular Hemoglobin 24.3 pg (27.0-31.0); Mean Corpuscular Volume 81.3 fL (78.0-98.0); Mean Platelet Volume 7.4 fL (7.4-10.4); Platelet Count 324 thou/uL (130-400); RBC Distribution Width 16.1 % (11.5-14.5); Red Blood Cell (RBC) Count 4.14 mill/uL (4.20-5.40); White Blood Cell (WBC) Count 8.7 thou/uL (4.8-10.8)
[2022-02-22 13:33] LABS: Bacteria/HPF 4+ HPF (None Seen); Bilirubin Negative (Negative); Blood, Urine Negative (Negative); Clarity Slightly Cloudy (Clear); Glucose, Urine (Dipstick) Negative (Negative); Ketone, Urine Negative (Negative); Leukocyte Negative (Negative); Nitrite Positive (Negative); Protein, Urine (Dipstick) Negative (Neg-Trace); Specific Gravity, Urine 1.025 (1.005-1.030); Squamous Epithelial 0-3 HPF (0-3); Urobilinogen 0.2 mg/dL (Less than 2); WBC/HPF 0-3 HPF (0-3)
== END 2022-02-22 12:16 | disposition home or self-care (01) ==
LOC: NAV ERS 07:41
DX: N39.0 Urinary tract infection, site not specified (principal); K59.00 Constipation, unspecified; M48.56XD Collapsed vertebra, not elsewhere classified, lumbar region, subsequent encounter for fracture with routine healing; J44.9 Chronic obstructive pulmonary disease, unspecified; E78.00 Pure hypercholesterolemia, unspecified; I10 Essential (primary) hypertension; Z79.899 Other long term (current) drug therapy
CPT/HCPCS: 36415; 51701; 71250; 74177; 80053; 81003; 81015; 83690; 85025; 87077; 87086; 87186; 96360; J7050; Q0162

== ENCOUNTER 2022-04-03 19:25 | Emergency (ER) | payer MEDICARE, MEDICAID ==
[2022-04-03 20:38] LABS: Bilirubin Negative (Negative); Blood, Urine Trace (Negative); Clarity Clear (Clear); Glucose, Urine (Dipstick) >=1000 mg/dL (Negative); Ketone, Urine Negative (Negative); Leukocyte Trace (Negative); Nitrite Positive (Negative); Protein, Urine (Dipstick) Negative (Neg-Trace); Specific Gravity, Urine 1.025 (1.005-1.030); Urobilinogen 0.2 mg/dL (Less than 2); pH, Urine 5.5 (5.0-9.0)
[2022-04-03 20:45] LABS: Bacteria/HPF 4+ HPF (None Seen); RBC/HPF 0-3 HPF (0-3); Squamous Epithelial 0-3 HPF (0-3); Transitional Epithelial 0-3 HPF (None Seen); WBC/HPF 21-50 HPF (0-3)
[2022-04-03] MEDS ORDERED: cefTRIAXone\\ROCEPHIN 1 GM VIAL ONE (21:18)
== END 2022-04-03 21:59 | disposition home or self-care (01) ==
LOC: NAV ERS 19:25
DX: N30.00 Acute cystitis without hematuria (principal); G89.29 Other chronic pain; M54.50 Low back pain, unspecified; J44.9 Chronic obstructive pulmonary disease, unspecified; K21.9 Gastro-esophageal reflux disease without esophagitis; I10 Essential (primary) hypertension; E78.00 Pure hypercholesterolemia, unspecified; E11.9 Type 2 diabetes mellitus without complications; Z79.01 Long term (current) use of anticoagulants; Z79.899 Other long term (current) drug therapy
CPT/HCPCS: 81003; 81015; 87077; 87086; 87186; 96372; 99283; J0696

== ENCOUNTER 2022-04-06 13:55 | Emergency (ER) | payer MEDICAID, MEDICARE, OTHER | END 2022-04-06 15:40 | disposition short-term general hospital (02) | LOC: NAV ERS 13:55 | DX: T18.128A Food in esophagus causing other injury, initial encounter (principal); J44.9 Chronic obstructive pulmonary disease, unspecified; E11.9 Type 2 diabetes mellitus without complications; K21.9 Gastro-esophageal reflux disease without esophagitis; E78.00 Pure hypercholesterolemia, unspecified; I10 Essential (primary) hypertension; Z79.899 Other long term (current) drug therapy | CPT/HCPCS: 99284 ==

== ENCOUNTER 2022-05-16 11:59 | Emergency (ER) | payer MEDICARE, MEDICAID ==
[2022-05-16] MEDS ORDERED: HYDROcodone/Acetaminophen 5/325 mg Tablet ONE (13:10)
[2022-05-16] MEDS ORDERED: Ketorolac Tromethamine 30 MG/ML VIAL ONE (13:10)
[2022-05-16 13:36] LABS: Bilirubin Negative (Negative); Blood, Urine Negative (Negative); Clarity Clear (Clear); Glucose, Urine (Dipstick) 500 mg/dL (Negative); Ketone, Urine Negative (Negative); Leukocyte Negative (Negative); Nitrite Negative (Negative); Protein, Urine (Dipstick) Negative (Neg-Trace); Urobilinogen 0.2 mg/dL (Less than 2)
== END 2022-05-16 17:20 | disposition home or self-care (01) ==
LOC: NAV ERS 11:59
DX: M54.50 Low back pain, unspecified (principal); G89.29 Other chronic pain; J44.9 Chronic obstructive pulmonary disease, unspecified; I10 Essential (primary) hypertension; E78.00 Pure hypercholesterolemia, unspecified; E11.9 Type 2 diabetes mellitus without complications; K21.9 Gastro-esophageal reflux disease without esophagitis; Z79.899 Other long term (current) drug therapy; Z79.01 Long term (current) use of anticoagulants
CPT/HCPCS: 81003; 87077; 87086; 87186; 96372; 99283; J1885

== ENCOUNTER 2022-08-18 12:51 | Emergency (ER) | payer MEDICARE, MEDICAID ==
[2022-08-18 14:33] LABS: #Eosinphils 0.3 thou/uL (0.0-0.7); #Lymphocytes 1.6 thou/uL (1.20-3.40); #Monocytes 0.9 thou/uL (0.11-0.59); #Neutrophils 7.5 thou/uL (1.40-6.50); %Basophils 0.4 % (0.0-1.0); %Eosinophils 2.7 % (0.0-10.0); %Lymphocytes 15.7 % (21.0-51.0); %Monocytes 8.9 % (0.0-10.0); %Neutrophils 72.3 % (42.0-75.0); Hemoglobin 10.9 g/dL (12.0-16.0); Mean Corpuscular HGB CONC 30.6 g/dL (32.0-36.0); Mean Corpuscular Hemoglobin 26.2 pg (27.0-31.0); Mean Corpuscular Volume 85.6 fl (78.0-98.0); Mean Platelet Volume 7.4 fL (7.4-10.4); Platelet Count 323 10x3/uL (130-400); RBC Distribution Width 14.1 % (11.5-14.5); Red Blood Cell (RBC) Count 4.17 mill/uL (4.20-5.40); White Blood Cell (WBC) Count 10.3 10x3/uL (4.8-10.8)
[2022-08-18 14:54] LABS: ALT (SGPT) 18 U/L (8-55); AST (SGOT) 15 U/L (5-34); Albumin 3.8 g/dL (3.4-4.8); Alkaline Phosphatase 133 U/L (40-110); Anion Gap 12 mmol/L (10-20); BUN (Urea Nitrogen) 31 mg/dL (9.8-20.1); Bilirubin, Total 0.5 mg/dL (0.2-1.2); CRP (Inflammatory) 6.61 mg/dL (= or < 0.5); Calc. Creatinine Clearance 0 mL/min (70-130); Calcium 8.7 mg/dL (7.8-10.44); Carbon Dioxide 26 mmol/L (23-31); Chloride 98 mmol/L (98-107); Estimated GFR 51; Globulin 2.9 g/dL (2.4-3.5); Glucose 202 mg/dL (83-110); Potassium 3.4 mmol/L (3.5-5.1); Protein, Total 6.7 g/dL (5.8-8.1); Sodium 133 mmol/L (136-145)
[2022-08-18] MEDS ORDERED: Sulfameth/Trimethoprim DS 800-160mg TAB ONE (15:12)
[2022-08-18] MEDS ORDERED: Acetaminophen 500 MG TAB ONE (15:12)
== END 2022-08-18 18:05 | disposition home or self-care (01) ==
LOC: NAV ERS 12:51
DX: L03.115 Cellulitis of right lower limb (principal); E11.9 Type 2 diabetes mellitus without complications; K21.9 Gastro-esophageal reflux disease without esophagitis; E78.5 Hyperlipidemia, unspecified; I10 Essential (primary) hypertension; Z79.899 Other long term (current) drug therapy; Z79.01 Long term (current) use of anticoagulants
CPT/HCPCS: 36415; 71045; 80053; 83880; 84484; 85025; 85379; 86140; 93005

== ENCOUNTER 2022-09-22 09:36 | Emergency (ER) | payer MEDICARE, MEDICAID ==
[2022-09-22] MEDS ORDERED: traMADol HCl 50 MG TAB ONE (10:33)
[2022-09-22] MEDS ORDERED: Ondansetron ODT 4 MG TAB ONE (10:33)
[2022-09-22] MEDS ORDERED: Sodium Chloride 0.9% 1,000 ML ONE (10:33)
[2022-09-22 10:35] LABS: #Eosinphils 0.3 thou/uL (0.0-0.7); #Lymphocytes 1.7 thou/uL (1.20-3.40); #Monocytes 0.8 thou/uL (0.11-0.59); #Neutrophils 5.8 thou/uL (1.40-6.50); %Basophils 0.4 % (0.0-1.0); %Eosinophils 3.4 % (0.0-10.0); %Lymphocytes 19.8 % (21.0-51.0); %Monocytes 9.3 % (0.0-10.0); %Neutrophils 67.1 % (42.0-75.0); Hemoglobin 11.1 g/dL (12.0-16.0); Mean Corpuscular HGB CONC 30.5 g/dL (32.0-36.0); Mean Corpuscular Hemoglobin 25.7 pg (27.0-31.0); Mean Corpuscular Volume 84.4 fl (78.0-98.0); Mean Platelet Volume 7.1 fL (7.4-10.4); Platelet Count 261 10x3/uL (130-400); RBC Distribution Width 14.8 % (11.5-14.5); Red Blood Cell (RBC) Count 4.32 mill/uL (4.20-5.40); White Blood Cell (WBC) Count 8.6 10x3/uL (4.8-10.8)
[2022-09-22 10:53] LABS: ALT (SGPT) 14 U/L (8-55); AST (SGOT) 15 U/L (5-34); Albumin 3.8 g/dL (3.4-4.8); Alkaline Phosphatase 117 U/L (40-110); Anion Gap 17 mmol/L (10-20); BUN (Urea Nitrogen) 42 mg/dL (9.8-20.1); Bilirubin, Total 0.3 mg/dL (0.2-1.2); Calc. Creatinine Clearance 0 mL/min (70-130); Calcium 9.8 mg/dL (7.8-10.44); Carbon Dioxide 24 mmol/L (23-31); Chloride 103 mmol/L (98-107); Estimated GFR 49; Globulin 3.3 g/dL (2.4-3.5); Glucose 180 mg/dL (83-110); Potassium 4.2 mmol/L (3.5-5.1); Protein, Total 7.1 g/dL (5.8-8.1); Sodium 140 mmol/L (136-145)
[2022-09-22 12:14] LABS: Bilirubin Negative (Negative); Blood, Urine Negative (Negative); Clarity Clear (Clear); Glucose, Urine (Dipstick) Negative (Negative); Ketone, Urine Negative (Negative); Leukocyte Negative (Negative); Nitrite Negative (Negative); Protein, Urine (Dipstick) Negative (Neg-Trace); Specific Gravity, Urine 1.025 (1.005-1.030); Urobilinogen 0.2 mg/dL (Less than 2)
[2022-09-22] MEDS ORDERED: Clindamycin/D5W 600 mg/50 ml Premix Bag ONE (13:20)
== END 2022-09-22 16:37 | disposition home or self-care (01) ==
LOC: NAV ERS 09:36
DX: M54.50 Low back pain, unspecified (principal); G89.29 Other chronic pain; L03.115 Cellulitis of right lower limb; D64.9 Anemia, unspecified; I12.9 Hypertensive chronic kidney disease with stage 1 through stage 4 chronic kidney disease, or unspecified chronic kidney disease; E11.22 Type 2 diabetes mellitus with diabetic chronic kidney disease; N18.9 Chronic kidney disease, unspecified; K21.9 Gastro-esophageal reflux disease without esophagitis; Z79.01 Long term (current) use of anticoagulants
CPT/HCPCS: 36415; 51701; 80053; 81003; 85025; 85379; 96365; J3490; J7050; Q0162

== ENCOUNTER 2022-10-04 02:58 | Emergency (ER) | payer MEDICARE, MEDICAID ==
[2022-10-04 03:47] LABS: #Basophils 0.1 thou/uL (0.0-0.2); #Eosinphils 0.4 thou/uL (0.0-0.7); #Lymphocytes 1.9 thou/uL (1.20-3.40); #Monocytes 0.7 thou/uL (0.11-0.59); %Basophils 0.8 % (0.0-1.0); %Eosinophils 3.9 % (0.0-10.0); %Lymphocytes 21.1 % (21.0-51.0); %Monocytes 8.1 % (0.0-10.0); %Neutrophils 66.1 % (42.0-75.0); Hemoglobin 11.4 g/dL (12.0-16.0); Mean Corpuscular HGB CONC 31.6 g/dL (32.0-36.0); Mean Corpuscular Hemoglobin 26.3 pg (27.0-31.0); Mean Corpuscular Volume 83.2 fl (78.0-98.0); Mean Platelet Volume 6.9 fL (7.4-10.4); Platelet Count 281 10x3/uL (130-400); Red Blood Cell (RBC) Count 4.34 mill/uL (4.20-5.40); White Blood Cell (WBC) Count 9.1 10x3/uL (4.8-10.8)
[2022-10-04] MEDS ORDERED: Sodium Chloride 0.9% 1,000 ML ONE (03:48)
[2022-10-04] MEDS ORDERED: Ketorolac Tromethamine 30 MG/ML VIAL ONE (03:48)
[2022-10-04 03:51] LABS: Bilirubin Negative (Negative); Blood, Urine Negative (Negative); Clarity Clear (Clear); Glucose, Urine (Dipstick) 500 mg/dL (Negative); Ketone, Urine Negative (Negative); Leukocyte Negative (Negative); Nitrite Negative (Negative); Protein, Urine (Dipstick) Negative (Neg-Trace); Specific Gravity, Urine 1.025 (1.005-1.030); Urobilinogen 0.2 mg/dL (Less than 2)
[2022-10-04 04:02] LABS: ALT (SGPT) 12 U/L (8-55); AST (SGOT) 11 U/L (5-34); Albumin 3.8 g/dL (3.4-4.8); Alkaline Phosphatase 133 U/L (40-110); Anion Gap 16 mmol/L (10-20); BUN (Urea Nitrogen) 32 mg/dL (9.8-20.1); Bilirubin, Total 0.2 mg/dL (0.2-1.2); Calc. Creatinine Clearance 0 mL/min (70-130); Calcium 9.5 mg/dL (7.8-10.44); Carbon Dioxide 23 mmol/L (23-31); Chloride 104 mmol/L (98-107); Estimated GFR 60; Globulin 3.3 g/dL (2.4-3.5); Glucose 230 mg/dL (83-110); Lipase 8 U/L (8-78); Potassium 4.5 mmol/L (3.5-5.1); Protein, Total 7.1 g/dL (5.8-8.1); Sodium 138 mmol/L (136-145)
[2022-10-04] MEDS ORDERED: Iopamidol 370 76% 100 ML VIAL ONE (09:00)
== END 2022-10-04 07:05 | disposition home or self-care (01) ==
LOC: NAV ERS 02:58
DX: M54.50 Low back pain, unspecified (principal); G89.29 Other chronic pain; R14.0 Abdominal distension (gaseous); I10 Essential (primary) hypertension; E11.9 Type 2 diabetes mellitus without complications; E78.5 Hyperlipidemia, unspecified; X50.0XXA Overexertion from strenuous movement or load, initial encounter
CPT/HCPCS: 74177; 80053; 81003; 83690; 85025; 96361; 96374; J1885; J7050; Q9967

== ENCOUNTER 2022-10-10 16:00 | Emergency (ER) | payer MEDICARE, MEDICAID ==
[2022-10-10] MEDS ORDERED: Ketorolac Tromethamine 30 MG/ML VIAL ONE (16:23)
== END 2022-10-10 18:49 | disposition home or self-care (01) ==
LOC: NAV ERS 16:00
DX: M54.50 Low back pain, unspecified (principal); G89.29 Other chronic pain; E11.622 Type 2 diabetes mellitus with other skin ulcer; L97.919 Non-pressure chronic ulcer of unspecified part of right lower leg with unspecified severity; L03.115 Cellulitis of right lower limb; E78.5 Hyperlipidemia, unspecified; K21.9 Gastro-esophageal reflux disease without esophagitis; I10 Essential (primary) hypertension
CPT/HCPCS: 96372; 99284; J1885

== ENCOUNTER 2022-10-23 17:20 | Emergency (ER) | payer MEDICARE, MEDICAID ==
[2022-10-23 18:23] LABS: Bilirubin Negative (Negative); Blood, Urine Negative (Negative); Clarity Slightly Cloudy (Clear); Glucose, Urine (Dipstick) >=1000 mg/dL (Negative); Ketone, Urine Negative (Negative); Leukocyte Trace (Negative); Nitrite Negative (Negative); Protein, Urine (Dipstick) Negative (Neg-Trace); Urobilinogen 0.2 mg/dL (Less than 2)
[2022-10-23 18:27] LABS: Bacteria/HPF Rare-Few HPF (None Seen); RBC/HPF None Seen HPF (0-3); WBC/HPF 21-50 HPF (0-3); Yeast-Budding 2+ HPF (None Seen)
[2022-10-23 18:29] LABS: Amphetamine Not Detected (NotDetected); Barbiturates Screen Not Detected (NotDetected); Benzodiazepine Screen Not Detected (NotDetected); Cocaine Metabolite Screen Not Detected (NotDetected); Methadone Not Detected (NotDetected); Methamphetamine Not Detected (NotDetected); Opiate Screen Detected (NotDetected); Oxycodone Screen Not Detected (NotDetected); Phencyclidine (PCP) Not Detected (NotDetected); THC/Cannabinoid Screen Not Detected (NotDetected); Tricyclic Screen Not Detected (NotDetected)
[2022-10-23 18:42] LABS: #Eosinphils 0.2 thou/uL (0.0-0.7); #Lymphocytes 1.5 thou/uL (1.20-3.40); #Monocytes 0.9 thou/uL (0.11-0.59); #Neutrophils 6.7 thou/uL (1.40-6.50); %Basophils 0.4 % (0.0-1.0); %Eosinophils 2.3 % (0.0-10.0); %Lymphocytes 15.9 % (21.0-51.0); %Monocytes 9.5 % (0.0-10.0); Hemoglobin 11.1 g/dL (12.0-16.0); Mean Corpuscular HGB CONC 31.3 g/dL (32.0-36.0); Mean Corpuscular Hemoglobin 26.1 pg (27.0-31.0); Mean Corpuscular Volume 83.2 fl (78.0-98.0); Mean Platelet Volume 6.8 fL (7.4-10.4); Platelet Count 294 10x3/uL (130-400); RBC Distribution Width 15.2 % (11.5-14.5); Red Blood Cell (RBC) Count 4.26 mill/uL (4.20-5.40); White Blood Cell (WBC) Count 9.3 10x3/uL (4.8-10.8)
[2022-10-23 19:02] LABS: ALT (SGPT) 9 U/L (8-55); AST (SGOT) 8 U/L (5-34); Albumin 3.6 g/dL (3.4-4.8); Alkaline Phosphatase 168 U/L (40-110); Anion Gap 16 mmol/L (10-20); BUN (Urea Nitrogen) 32 mg/dL (9.8-20.1); Bilirubin, Total 0.2 mg/dL (0.2-1.2); CK (CPK) 31 U/L (29-168); Calc. Creatinine Clearance 0 mL/min (70-130); Calcium 9.1 mg/dL (7.8-10.44); Carbon Dioxide 21 mmol/L (23-31); Chloride 105 mmol/L (98-107); Estimated GFR 57; Globulin 3.4 g/dL (2.4-3.5); Glucose 258 mg/dL (83-110); Lipase 8 U/L (8-78); Magnesium 1.8 mg/dL (1.6-2.6); Potassium 4.5 mmol/L (3.5-5.1); Sodium 137 mmol/L (136-145)
[2022-10-23] MEDS ORDERED: Ketorolac Tromethamine 30 MG/ML VIAL ONE (19:13)
== END 2022-10-23 20:42 | disposition home or self-care (01) ==
LOC: NAV ERS 17:20
DX: M54.9 Dorsalgia, unspecified (principal); G89.29 Other chronic pain; B37.9 Candidiasis, unspecified; I10 Essential (primary) hypertension; E78.5 Hyperlipidemia, unspecified; E11.9 Type 2 diabetes mellitus without complications; K21.9 Gastro-esophageal reflux disease without esophagitis; J44.9 Chronic obstructive pulmonary disease, unspecified
CPT/HCPCS: 36415; 72125; 72128; 72131; 74176; 80053; 80306; 81003; 81015; 82550; 83690; 83735; 85025; 96372; J1885

== ENCOUNTER 2022-11-09 15:43 | Emergency (ER) | payer MEDICARE, MEDICAID ==
[2022-11-09 17:00] LABS: #Basophils 0.1 thou/uL (0.0-0.2); #Eosinphils 0.2 thou/uL (0.0-0.7); #Lymphocytes 1.8 thou/uL (1.20-3.40); #Monocytes 1.2 thou/uL (0.11-0.59); #Neutrophils 11.1 thou/uL (1.40-6.50); %Basophils 0.4 % (0.0-1.0); %Eosinophils 1.1 % (0.0-10.0); %Lymphocytes 12.2 % (21.0-51.0); %Monocytes 8.7 % (0.0-10.0); %Neutrophils 77.6 % (42.0-75.0); Hemoglobin 11.5 g/dL (12.0-16.0); Mean Corpuscular HGB CONC 30.7 g/dL (32.0-36.0); Mean Corpuscular Hemoglobin 25.5 pg (27.0-31.0); Mean Corpuscular Volume 83.3 fl (78.0-98.0); Mean Platelet Volume 7.1 fL (7.4-10.4); Platelet Count 326 10x3/uL (130-400); RBC Distribution Width 15.9 % (11.5-14.5); White Blood Cell (WBC) Count 14.3 10x3/uL (4.8-10.8)
[2022-11-09] MEDS ORDERED: Morphine 4 MG/ML VIAL ONE (17:05)
[2022-11-09] MEDS ORDERED: Ondansetron PF 4 MG/2 ML Vial ONE (17:05)
[2022-11-09] MEDS ORDERED: Clindamycin/D5W 600 mg/50 ml Premix Bag ONE (17:18)
[2022-11-09 17:34] LABS: Calc. Creatinine Clearance 0 mL/min (70-130)
[2022-11-09 17:35] LABS: ALT (SGPT) 15 U/L (8-55); AST (SGOT) 28 U/L (5-34); Albumin 3.3 g/dL (3.4-4.8); Alkaline Phosphatase 109 U/L (40-110); Globulin 3.5 g/dL (2.4-3.5)
[2022-11-09 17:37] LABS: Anion Gap 20 mmol/L (10-20); BUN (Urea Nitrogen) 49 mg/dL (9.8-20.1); Bilirubin, Total 0.4 mg/dL (0.2-1.2); Calcium 8.7 mg/dL (7.8-10.44); Carbon Dioxide 17 mmol/L (23-31); Chloride 103 mmol/L (98-107); Estimated GFR 50; Glucose 252 mg/dL (83-110); Potassium 5.6 mmol/L (3.5-5.1); Protein, Total 6.8 g/dL (5.8-8.1); Sodium 134 mmol/L (136-145)
[2022-11-09] MEDS ORDERED: Sodium Chloride 0.9% 1,000 ML ONE (18:19)
[2022-11-09] MEDS ORDERED: HYDROcodone/Acetaminophen 5/325 mg Tablet ONE (19:01)
== END 2022-11-09 20:40 | disposition home or self-care (01) ==
LOC: NAV ERS 15:43
DX: E11.622 Type 2 diabetes mellitus with other skin ulcer (principal); L97.119 Non-pressure chronic ulcer of right thigh with unspecified severity; L97.919 Non-pressure chronic ulcer of unspecified part of right lower leg with unspecified severity; N28.9 Disorder of kidney and ureter, unspecified; E11.9 Type 2 diabetes mellitus without complications; K21.9 Gastro-esophageal reflux disease without esophagitis; E78.5 Hyperlipidemia, unspecified; I10 Essential (primary) hypertension; J44.9 Chronic obstructive pulmonary disease, unspecified
CPT/HCPCS: 36415; 80053; 85025; 87070; 87205; 96365; 96375; J2270; J2405; J3490; J7050

== ENCOUNTER 2022-12-11 18:29 | Emergency (ER) | payer MEDICARE, MEDICAID ==
[2022-12-11 19:53] LABS: #Eosinphils 0.2 thou/uL (0.0-0.7); #Lymphocytes 1.7 thou/uL (1.20-3.40); #Monocytes 0.8 thou/uL (0.11-0.59); #Neutrophils 4.6 thou/uL (1.40-6.50); %Basophils 0.5 % (0.0-1.0); %Eosinophils 3.3 % (0.0-10.0); %Lymphocytes 23.2 % (21.0-51.0); %Monocytes 10.4 % (0.0-10.0); %Neutrophils 62.5 % (42.0-75.0); Hemoglobin 11.1 g/dL (12.0-16.0); Mean Corpuscular HGB CONC 30.7 g/dL (32.0-36.0); Mean Corpuscular Hemoglobin 26.1 pg (27.0-31.0); Mean Corpuscular Volume 85.3 fl (78.0-98.0); Mean Platelet Volume 7.2 fL (7.4-10.4); Platelet Count 210 10x3/uL (130-400); RBC Distribution Width 16.3 % (11.5-14.5); Red Blood Cell (RBC) Count 4.25 mill/uL (4.20-5.40); White Blood Cell (WBC) Count 7.3 10x3/uL (4.8-10.8)
[2022-12-11 20:15] LABS: Anion Gap 16 mmol/L (10-20); BUN (Urea Nitrogen) 28 mg/dL (9.8-20.1); CK (CPK) 41 U/L (29-168); Calc. Creatinine Clearance 0 mL/min (70-130); Calcium 11.6 mg/dL (7.8-10.44); Carbon Dioxide 27 mmol/L (23-31); Chloride 106 mmol/L (98-107); Estimated GFR 69; Glucose 151 mg/dL (83-110); Potassium 3.8 mmol/L (3.5-5.1); Sodium 145 mmol/L (136-145)
[2022-12-11] MEDS ORDERED: traMADol HCl 50 MG TAB ONE (20:15)
[2022-12-11 20:50] LABS: Bilirubin Negative (Negative); Blood, Urine Trace (Negative); Glucose, Urine (Dipstick) Negative (Negative); Ketone, Urine Negative (Negative); Leukocyte Moderate (Negative); Nitrite Positive (Negative); Protein, Urine (Dipstick) Trace mg/dL (Neg-Trace); Specific Gravity, Urine 1.025 (1.005-1.030); Urobilinogen 0.2 mg/dL (Less than 2); pH, Urine 5.5 (5.0-9.0)
[2022-12-11 20:53] LABS: Clarity Hazy (Clear)
[2022-12-11 20:57] LABS: Bacteria/HPF 3+ HPF (None Seen); CAUTI Indications for Culture Pelvic or flank pain; RBC/HPF 0-3 HPF (0-3); Squamous Epithelial 0-3 HPF (0-3); WBC/HPF 21-50 HPF (0-3)
[2022-12-11 20:58] LABS: Urine Culture Reflex Yes Yes
== END 2022-12-11 21:30 | disposition home or self-care (01) ==
LOC: NAV ERS 18:29
DX: R52 Pain, unspecified (principal); E11.9 Type 2 diabetes mellitus without complications; K21.9 Gastro-esophageal reflux disease without esophagitis; E78.5 Hyperlipidemia, unspecified; I10 Essential (primary) hypertension
CPT/HCPCS: 71045; 80048; 81001; 82550; 85025; 87077; 87086; 87186

== ENCOUNTER 2023-01-12 08:29 | Emergency (ER) | payer MEDICARE, MEDICAID ==
[2023-01-12] MEDS ORDERED: Insulin Regular 300 UNITS/3 ML VIAL ONE (09:07)
== END 2023-01-12 09:20 | disposition home or self-care (01) ==
LOC: NAV ERS 08:29
DX: E11.65 Type 2 diabetes mellitus with hyperglycemia (principal); K21.9 Gastro-esophageal reflux disease without esophagitis; J44.9 Chronic obstructive pulmonary disease, unspecified; Z79.01 Long term (current) use of anticoagulants
CPT/HCPCS: 99283; J1815

== ENCOUNTER 2023-01-19 10:44 | Emergency (ER) | payer MEDICAID, MEDICARE ==
[2023-01-19] MEDS ORDERED: Acetaminophen 500 MG TAB ONE (11:15)
== END 2023-01-19 15:16 | disposition home or self-care (01) ==
LOC: NAV ERS 10:44
DX: G89.4 Chronic pain syndrome (principal); M54.50 Low back pain, unspecified; E11.65 Type 2 diabetes mellitus with hyperglycemia; E11.40 Type 2 diabetes mellitus with diabetic neuropathy, unspecified; K21.9 Gastro-esophageal reflux disease without esophagitis; E78.00 Pure hypercholesterolemia, unspecified; J44.9 Chronic obstructive pulmonary disease, unspecified; Z79.01 Long term (current) use of anticoagulants; Z79.4 Long term (current) use of insulin; Z79.899 Other long term (current) drug therapy
CPT/HCPCS: 99284

== ENCOUNTER 2023-02-09 10:27 | Emergency (ER) | payer MEDICARE, MEDICAID ==
[2023-02-09] MEDS ORDERED: Ibuprofen 800 MG TAB ONE (10:46)
[2023-02-09] MEDS ORDERED: Insulin Regular 300 UNITS/3 ML VIAL ONE (11:01)
[2023-02-09] MEDS ORDERED: Amlodipine 5 MG TAB ONE (12:07)
== END 2023-02-09 14:00 | disposition home or self-care (01) ==
LOC: NAV ERS 10:27
DX: G89.4 Chronic pain syndrome (principal); I10 Essential (primary) hypertension; E11.65 Type 2 diabetes mellitus with hyperglycemia; E11.42 Type 2 diabetes mellitus with diabetic polyneuropathy; K21.9 Gastro-esophageal reflux disease without esophagitis; J44.9 Chronic obstructive pulmonary disease, unspecified; Z79.01 Long term (current) use of anticoagulants; Z79.899 Other long term (current) drug therapy; Z79.4 Long term (current) use of insulin
CPT/HCPCS: 36416; 99285; J1815

== ENCOUNTER 2023-02-28 06:45 | Emergency (ER) | payer MEDICARE ==
[2023-02-28 07:47] LABS: #Eosinphils 0.2 thou/uL (0.0-0.7); #Lymphocytes 1.8 thou/uL (1.20-3.40); #Monocytes 0.6 thou/uL (0.11-0.59); %Basophils 0.7 % (0.0-1.0); %Eosinophils 3.1 % (0.0-10.0); %Lymphocytes 27.1 % (21.0-51.0); %Monocytes 8.9 % (0.0-10.0); %Neutrophils 60.3 % (42.0-75.0); Hematocrit 38.9 % (36.0-47.0); Hemoglobin 12.1 g/dL (12.0-16.0); Mean Corpuscular HGB CONC 31.1 g/dL (32.0-36.0); Mean Corpuscular Hemoglobin 27.2 pg (27.0-31.0); Mean Corpuscular Volume 87.7 fl (78.0-98.0); Mean Platelet Volume 6.6 fL (7.4-10.4); Platelet Count 258 10x3/uL (130-400); RBC Distribution Width 12.9 % (11.5-14.5); Red Blood Cell (RBC) Count 4.43 mill/uL (4.20-5.40); White Blood Cell (WBC) Count 6.6 10x3/uL (4.8-10.8)
[2023-02-28 07:48] LABS: Base Excess-Venous 0.3 mmol/L (-2.0 to 3.0); Bicarbonate (HCO3v) 24.9 mmol/L (22.0-28.0); Calcium, Ionized 1.21 mmol/L (1.15-1.33); Chloride 104 mmol/L (98-107); Hemoglobin - Calc 13.5 g/dL (12.0-16.0); Potassium 4.2 mmol/L (3.5-5.1); Sodium 138 mmol/L (138-145); T. Carbon Dioxide 26.1 mmol/L (22.0-28.0); vO2 Saturation-calc 86.6 % (60.0-85.0)
[2023-02-28] MEDS ORDERED: Aspirin Chewable 81 MG TAB ONE (07:50)
[2023-02-28 07:53] LABS: ALT (SGPT) 12 U/L (8-55); AST (SGOT) 9 U/L (5-34); Alkaline Phosphatase 101 U/L (40-110); Anion Gap 16 mmol/L (10-20); BUN (Urea Nitrogen) 32 mg/dL (9.8-20.1); Bilirubin, Total 0.5 mg/dL (0.2-1.2); Calc. Creatinine Clearance 0 mL/min (70-130); Carbon Dioxide 21 mmol/L (23-31); Chloride 103 mmol/L (98-107); Estimated GFR 54; Glucose 348 mg/dL (83-110); Potassium 4.2 mmol/L (3.5-5.1); Sodium 136 mmol/L (136-145)
[2023-02-28 07:55] LABS: Troponin I Less than 0.010 ng/mL (< 0.028)
[2023-02-28 08:06] LABS: Albumin 3.7 g/dL (3.4-4.8)
[2023-02-28 08:25] LABS: Bilirubin Negative (Negative); Blood, Urine Negative (Negative); Clarity Clear (Clear); Glucose, Urine (Dipstick) 500 mg/dL (Negative); Ketone, Urine Negative (Negative); Leukocyte Negative (Negative); Nitrite Positive (Negative); Protein, Urine (Dipstick) Negative (Neg-Trace); Urobilinogen 0.2 mg/dL (Less than 2); pH, Urine 5.5 (5.0-9.0)
[2023-02-28 08:30] LABS: CAUTI Indications for Culture < 2yrs of age; RBC/HPF None Seen HPF (0-3); WBC/HPF 0-3 HPF (0-3)
[2023-02-28 08:31] LABS: Bacteria/HPF 3+ HPF (None Seen); Urine Culture Reflex Yes Yes
[2023-02-28 08:37] LABS: Amphetamine Not Detected (NotDetected); Barbiturates Screen Not Detected (NotDetected); Benzodiazepine Screen Not Detected (NotDetected); Cocaine Metabolite Screen Not Detected (NotDetected); Methadone Not Detected (NotDetected); Methamphetamine Not Detected (NotDetected); Opiate Screen Not Detected (NotDetected); Oxycodone Screen Not Detected (NotDetected); Phencyclidine (PCP) Not Detected (NotDetected); THC/Cannabinoid Screen Not Detected (NotDetected); Tricyclic Screen Not Detected (NotDetected)
[2023-02-28] MEDS ORDERED: Nitroglycerin 2% Ointment 1 INCH/1 GM Packet ONE (09:22)
[2023-02-28 11:19] LABS: Troponin I Less than 0.010 ng/mL (< 0.028)
[2023-02-28 18:49] LABS: Protein, Total 6.7 g/dL (5.8-8.1)
== END 2023-02-28 13:34 | disposition short-term general hospital (02) ==
LOC: NAV ERS 06:45
DX: R07.9 Chest pain, unspecified (principal); R06.02 Shortness of breath; E11.9 Type 2 diabetes mellitus without complications; I10 Essential (primary) hypertension; Z79.01 Long term (current) use of anticoagulants; Z79.899 Other long term (current) drug therapy
CPT/HCPCS: 36416; 51701; 71045; 80053; 80306; 81001; 82330; 82803; 83880; 84484; 85025; 87077; 87086; 87186; 93005; 36415-59

== ENCOUNTER 2023-04-22 09:08 | Emergency (ER) | payer MEDICARE, MEDICAID ==
[2023-04-22] MEDS ORDERED: traMADol HCl 50 MG TAB ONE (10:08)
== END 2023-04-22 15:42 | disposition home or self-care (01) ==
LOC: NAV ERS 09:08
DX: B37.2 Candidiasis of skin and nail (principal); L25.9 Unspecified contact dermatitis, unspecified cause; M25.569 Pain in unspecified knee; M54.9 Dorsalgia, unspecified; G89.29 Other chronic pain; E11.9 Type 2 diabetes mellitus without complications; K21.9 Gastro-esophageal reflux disease without esophagitis; E78.00 Pure hypercholesterolemia, unspecified; Z79.899 Other long term (current) drug therapy; Z79.01 Long term (current) use of anticoagulants
CPT/HCPCS: 99283

== ENCOUNTER 2023-05-04 01:13 | Emergency (ER) | payer MEDICARE, MEDICAID ==
[2023-05-04] MEDS ORDERED: Lorazepam 2 MG/ML VIAL ONE (01:49)
[2023-05-04] MEDS ORDERED: traMADol HCl 50 MG TAB ONE (03:53)
== END 2023-05-04 05:00 | disposition home or self-care (01) ==
LOC: NAV ERS 01:13
DX: G89.29 Other chronic pain (principal); M54.9 Dorsalgia, unspecified; F41.1 Generalized anxiety disorder; J44.9 Chronic obstructive pulmonary disease, unspecified; E11.40 Type 2 diabetes mellitus with diabetic neuropathy, unspecified; I10 Essential (primary) hypertension; R07.9 Chest pain, unspecified; R06.02 Shortness of breath; E11.9 Type 2 diabetes mellitus without complications
CPT/HCPCS: 71045; 93005; 96372; 99283; J2060

== ENCOUNTER 2023-05-11 08:26 | Emergency (ER) | payer MEDICAID, MEDICARE ==
[2023-05-11] MEDS ORDERED: Acetaminophen 500 MG TAB ONE (09:17)
== END 2023-05-11 11:30 | disposition home or self-care (01) ==
LOC: NAV ERS 08:26
DX: G89.4 Chronic pain syndrome (principal)
CPT/HCPCS: 99284

== ENCOUNTER 2023-07-13 06:07 | Emergency (ER) | payer MEDICARE ==
[2023-07-13] MEDS ORDERED: HYDROcodone/Acetaminophen 10/325 mg Tablet ONE (07:32)
[2023-07-13] MEDS ORDERED: Gabapentin 100 MG CAP ONE (07:32)
[2023-07-13 07:38] LABS: Bilirubin Negative (Negative); Blood, Urine Negative (Negative); Clarity Cloudy (Clear); Glucose, Urine (Dipstick) 250 mg/dL (Negative); Ketone, Urine Negative (Negative); Leukocyte Negative (Negative); Nitrite Positive (Negative); Protein, Urine (Dipstick) Negative (Neg-Trace); Urobilinogen 0.2 mg/dL (Less than 2); pH, Urine 5.5 (5.0-9.0)
[2023-07-13 08:01] LABS: Bacteria/HPF 2+ HPF (None Seen); CAUTI Indications for Culture Dysuria,urgency,freq; RBC/HPF None Seen HPF (0-3); Squamous Epithelial 0-3 HPF (0-3); WBC/HPF 0-3 HPF (0-3)
[2023-07-13 08:02] LABS: Urine Culture Reflex No No
[2023-07-13] MEDS ORDERED: Cipro 250 MG TAB ONE (08:11)
== END 2023-07-13 08:20 | disposition home or self-care (01) ==
LOC: NAV ERS 06:07
DX: N39.0 Urinary tract infection, site not specified (principal); G89.29 Other chronic pain; M54.9 Dorsalgia, unspecified; M54.2 Cervicalgia; J44.9 Chronic obstructive pulmonary disease, unspecified; E11.9 Type 2 diabetes mellitus without complications; K21.9 Gastro-esophageal reflux disease without esophagitis; E78.5 Hyperlipidemia, unspecified; I10 Essential (primary) hypertension; Z79.4 Long term (current) use of insulin; Z79.899 Other long term (current) drug therapy
CPT/HCPCS: 36416; 71045; 81001

== ENCOUNTER 2023-07-20 08:02 | Emergency (ER) | payer MEDICARE | END 2023-07-20 09:23 | disposition home or self-care (01) | LOC: NAV ERS 08:02 | DX: S90.829A Blister (nonthermal), unspecified foot, initial encounter (principal); E11.69 Type 2 diabetes mellitus with other specified complication; J44.9 Chronic obstructive pulmonary disease, unspecified; E11.40 Type 2 diabetes mellitus with diabetic neuropathy, unspecified; E78.5 Hyperlipidemia, unspecified; I10 Essential (primary) hypertension; K21.9 Gastro-esophageal reflux disease without esophagitis; Z79.899 Other long term (current) drug therapy; X58.XXXA Exposure to other specified factors, initial encounter | CPT/HCPCS: 99283 ==

== ENCOUNTER 2023-07-29 08:36 | Emergency (ER) | payer MEDICARE ==
[2023-07-29] MEDS ORDERED: Ketorolac Tromethamine 30 MG (1 mL) VIAL ONE (09:24)
[2023-07-29] MEDS ORDERED: Insulin Regular 300 UNITS/3 ML VIAL ONE (09:24)
[2023-07-29] MEDS ORDERED: Sodium Chloride 0.9% 1,000 ML ONE (09:25)
[2023-07-29 09:36] LABS: ALT (SGPT) 16 U/L (8-55); AST (SGOT) 14 U/L (5-34); Albumin 3.8 g/dL (3.4-4.8); Alkaline Phosphatase 159 U/L (40-110); Anion Gap 17 mmol/L (10-20); BUN (Urea Nitrogen) 35 mg/dL (9.8-20.1); Bilirubin, Total 0.5 mg/dL (0.2-1.2); Calc. Creatinine Clearance 0 mL/min (70-130); Calcium 9.5 mg/dL (7.8-10.44); Carbon Dioxide 23 mmol/L (23-31); Chloride 98 mmol/L (98-107); Estimated GFR 45; Globulin 3.3 g/dL (2.4-3.5); Potassium 4.6 mmol/L (3.5-5.1); Protein, Total 7.1 g/dL (5.8-8.1); Sodium 133 mmol/L (136-145)
[2023-07-29 09:37] LABS: #Basophils 0.1 thou/uL (0.0-0.2); #Eosinphils 0.3 thou/uL (0.0-0.7); #Lymphocytes 1.8 thou/uL (1.20-3.40); #Monocytes 0.7 thou/uL (0.11-0.59); %Basophils 0.9 % (0.0-1.0); %Eosinophils 3.1 % (0.0-10.0); %Lymphocytes 17.9 % (21.0-51.0); %Monocytes 6.8 % (0.0-10.0); %Neutrophils 71.3 % (42.0-75.0); Hematocrit 40.2 % (36.0-47.0); Hemoglobin 13.2 g/dL (12.0-16.0); Mean Corpuscular HGB CONC 32.8 g/dL (32.0-36.0); Mean Corpuscular Hemoglobin 28.2 pg (27.0-31.0); Mean Corpuscular Volume 86.2 fl (78.0-98.0); Mean Platelet Volume 7.5 fL (7.4-10.4); Platelet Count 270 10x3/uL (130-400); RBC Distribution Width 12.6 % (11.5-14.5); Red Blood Cell (RBC) Count 4.66 mill/uL (4.20-5.40); White Blood Cell (WBC) Count 9.8 10x3/uL (4.8-10.8)
[2023-07-29] MEDS ORDERED: Gabapentin 100 MG CAP ONE (10:15)
[2023-07-29 10:17] LABS: Bilirubin Negative (Negative); Blood, Urine Trace (Negative); Clarity Clear (Clear); Glucose, Urine (Dipstick) 500 mg/dL (Negative); Ketone, Urine Negative (Negative); Leukocyte Negative (Negative); Nitrite Positive (Negative); Protein, Urine (Dipstick) Negative (Neg-Trace); Specific Gravity, Urine 1.015 (1.005-1.030); Urobilinogen 0.2 mg/dL (Less than 2); pH, Urine 5.5 (5.0-9.0)
[2023-07-29 10:32] LABS: Bacteria/HPF 2+ HPF (None Seen); RBC/HPF 0-3 HPF (0-3); Squamous Epithelial 0-3 HPF (0-3)
[2023-07-29 11:11] LABS: Glucose 447 mg/dL (83-110)
== END 2023-07-29 11:35 | disposition home or self-care (01) ==
LOC: NAV ERS 08:36
DX: M54.9 Dorsalgia, unspecified (principal); G89.29 Other chronic pain; E11.65 Type 2 diabetes mellitus with hyperglycemia; K21.9 Gastro-esophageal reflux disease without esophagitis; E78.5 Hyperlipidemia, unspecified; I10 Essential (primary) hypertension; Z79.01 Long term (current) use of anticoagulants; Z79.899 Other long term (current) drug therapy
CPT/HCPCS: 36416; 51701; 80053; 81001; 85025; 96361; 96374; 96375; J1815; J1885; J7050

== ENCOUNTER 2023-11-05 06:28 | Emergency (ER) | payer MEDICARE, MEDICAID ==
[2023-11-05 07:54] LABS: Bilirubin Negative (Negative); Blood, Urine Negative (Negative); Clarity Clear (Clear); Glucose, Urine (Dipstick) >=1000 mg/dL (Negative); Ketone, Urine Negative (Negative); Leukocyte Trace (Negative); Nitrite Positive (Negative); Protein, Urine (Dipstick) Negative (Neg-Trace); Urobilinogen 0.2 mg/dL (Less than 2)
[2023-11-05 08:02] LABS: Bacteria/HPF 1+ HPF (None Seen); CAUTI Indications for Culture Dysuria,urgency,freq; RBC/HPF None Seen HPF (0-3); Squamous Epithelial 0-3 HPF (0-3)
[2023-11-05 08:03] LABS: Urine Culture Reflex No No
[2023-11-05 08:38] LABS: #Basophils 0.1 thou/uL (0.0-0.2); #Eosinphils 0.2 thou/uL (0.0-0.7); #Lymphocytes 1.2 thou/uL (1.20-3.40); #Monocytes 0.8 thou/uL (0.11-0.59); #Neutrophils 4.7 thou/uL (1.40-6.50); %Basophils 1.1 % (0.0-1.0); %Eosinophils 2.7 % (0.0-10.0); %Lymphocytes 17.1 % (21.0-51.0); %Monocytes 11.6 % (0.0-10.0); %Neutrophils 67.5 % (42.0-75.0); Hematocrit 36.8 % (36.0-47.0); Hemoglobin 11.4 g/dL (12.0-16.0); Mean Corpuscular HGB CONC 30.8 g/dL (32.0-36.0); Mean Corpuscular Hemoglobin 27.1 pg (27.0-31.0); Mean Corpuscular Volume 87.9 fl (78.0-98.0); Mean Platelet Volume 7.2 fL (7.4-10.4); Platelet Count 215 10x3/uL (130-400); RBC Distribution Width 13.8 % (11.5-14.5); Red Blood Cell (RBC) Count 4.19 mill/uL (4.20-5.40)
[2023-11-05 08:53] LABS: ALT (SGPT) 12 U/L (8-55); AST (SGOT) 9 U/L (5-34); Albumin 3.8 g/dL (3.4-4.8); Alkaline Phosphatase 127 U/L (40-110); Anion Gap 15 mmol/L (10-20); BUN (Urea Nitrogen) 32 mg/dL (9.8-20.1); Bilirubin, Total 0.4 mg/dL (0.2-1.2); Calc. Creatinine Clearance 0 mL/min (70-130); Calcium 8.8 mg/dL (7.8-10.44); Carbon Dioxide 22 mmol/L (23-31); Chloride 106 mmol/L (98-107); Estimated GFR 64; Globulin 2.8 g/dL (2.4-3.5); Glucose 319 mg/dL (83-110); Potassium 4.2 mmol/L (3.5-5.1); Protein, Total 6.6 g/dL (5.8-8.1); Sodium 139 mmol/L (136-145)
[2023-11-05 08:55] LABS: Troponin I Less than 0.010 ng/mL (< 0.028)
[2023-11-05] MEDS ORDERED: Sodium Chloride 0.9% 1,000 ML ONE (09:04)
[2023-11-05] MEDS ORDERED: Ketorolac Tromethamine 30 MG (1 mL) VIAL ONE (09:58)
== END 2023-11-05 11:17 | disposition home or self-care (01) ==
LOC: NAV ERS 06:28
DX: N39.0 Urinary tract infection, site not specified (principal); R21 Rash and other nonspecific skin eruption; R53.1 Weakness; E11.65 Type 2 diabetes mellitus with hyperglycemia; J44.9 Chronic obstructive pulmonary disease, unspecified; E11.40 Type 2 diabetes mellitus with diabetic neuropathy, unspecified; I10 Essential (primary) hypertension
CPT/HCPCS: 74176; 80053; 81001; 84443; 84484; 85025; 85379; 96361; 96374; J1885; J7050

== ENCOUNTER 2023-11-14 11:35 | Emergency (ER) | payer MEDICARE, MEDICAID ==
[2023-11-14 12:18] LABS: #Basophils 0.1 thou/uL (0.0-0.2); #Eosinphils 0.3 thou/uL (0.0-0.7); #Lymphocytes 1.4 thou/uL (1.20-3.40); #Monocytes 0.6 thou/uL (0.11-0.59); #Neutrophils 5.7 thou/uL (1.40-6.50); %Basophils 0.8 % (0.0-1.0); %Eosinophils 3.3 % (0.0-10.0); %Lymphocytes 17.6 % (21.0-51.0); %Monocytes 7.1 % (0.0-10.0); %Neutrophils 71.2 % (42.0-75.0); Hemoglobin 12.1 g/dL (12.0-16.0); Mean Corpuscular Hemoglobin 27.3 pg (27.0-31.0); Mean Corpuscular Volume 88.1 fl (78.0-98.0); Mean Platelet Volume 6.7 fL (7.4-10.4); Platelet Count 260 10x3/uL (130-400); RBC Distribution Width 13.7 % (11.5-14.5); Red Blood Cell (RBC) Count 4.43 mill/uL (4.20-5.40); White Blood Cell (WBC) Count 7.9 10x3/uL (4.8-10.8)
[2023-11-14 12:34] LABS: ALT (SGPT) 11 U/L (8-55); AST (SGOT) 8 U/L (5-34); Alkaline Phosphatase 112 U/L (40-110); Anion Gap 17 mmol/L (10-20); BUN (Urea Nitrogen) 32 mg/dL (9.8-20.1); Bilirubin, Total 0.8 mg/dL (0.2-1.2); Calc. Creatinine Clearance 0 mL/min (70-130); Calcium 9.6 mg/dL (7.8-10.44); Carbon Dioxide 21 mmol/L (23-31); Chloride 104 mmol/L (98-107); Estimated GFR 47; Globulin 3.4 g/dL (2.4-3.5); Glucose 363 mg/dL (83-110); Potassium 4.8 mmol/L (3.5-5.1); Protein, Total 7.4 g/dL (5.8-8.1); Sodium 137 mmol/L (136-145)
[2023-11-14 12:36] LABS: Troponin I Less than 0.010 ng/mL (< 0.028)
[2023-11-14 13:35] LABS: Influenza A by NAA Not Detected (NotDetected); Influenza B by NAA Not Detected (NotDetected); SARS-CoV-2 NAA Rapid Test Not Detected (NotDetected)
[2023-11-14 14:25] LABS: Bilirubin Negative (Negative); Blood, Urine Negative (Negative); Clarity Slightly Cloudy (Clear); Glucose, Urine (Dipstick) 500 mg/dL (Negative); Ketone, Urine Negative (Negative); Leukocyte Negative (Negative); Nitrite Positive (Negative); Protein, Urine (Dipstick) Negative (Neg-Trace); Urobilinogen 0.2 mg/dL (Less than 2); pH, Urine 5.5 (5.0-9.0)
[2023-11-14 14:32] LABS: Bacteria/HPF 3+ HPF (None Seen); CAUTI Indications for Culture Pelvic or flank pain; RBC/HPF 0-3 HPF (0-3); Squamous Epithelial 0-3 HPF (0-3); Urine Culture Reflex No No
[2023-11-14] MEDS ORDERED: Morphine 4 MG/ML VIAL ONE (15:01)
[2023-11-14] MEDS ORDERED: cefTRIAXone (ROCEPHIN) 1 GM VIAL ONE (15:01)
[2023-11-14] MEDS ORDERED: Ondansetron ODT 4 MG TAB ONE (15:01)
[2023-11-14] MEDS ORDERED: Lidocaine 1% (PF) 30 ML VIAL ONE (15:03)
== END 2023-11-14 17:14 | disposition home or self-care (01) ==
LOC: NAV ERS 11:35
DX: N39.0 Urinary tract infection, site not specified (principal); K21.9 Gastro-esophageal reflux disease without esophagitis; I10 Essential (primary) hypertension; E11.40 Type 2 diabetes mellitus with diabetic neuropathy, unspecified; Z60.9 Problem related to social environment, unspecified
CPT/HCPCS: 36415; 51701; 71045; 80053; 81001; 84443; 84484; 85025; 87077; 87086; 87186; 93005; 96372; J0696; J2001; J2270; Q0162

== ENCOUNTER 2023-11-15 13:18 | Emergency (ER) | payer MEDICAID, MEDICARE ==
[2023-11-15 13:51] LABS: #Basophils 0.1 thou/uL (0.0-0.2); #Eosinphils 0.3 thou/uL (0.0-0.7); #Lymphocytes 1.3 thou/uL (1.20-3.40); #Monocytes 0.5 thou/uL (0.11-0.59); #Neutrophils 4.8 thou/uL (1.40-6.50); %Basophils 0.9 % (0.0-1.0); %Eosinophils 3.9 % (0.0-10.0); %Lymphocytes 18.3 % (21.0-51.0); %Monocytes 7.3 % (0.0-10.0); %Neutrophils 69.7 % (42.0-75.0); Hematocrit 39.3 % (36.0-47.0); Hemoglobin 12.1 g/dL (12.0-16.0); Mean Corpuscular HGB CONC 30.8 g/dL (32.0-36.0); Mean Corpuscular Hemoglobin 27.1 pg (27.0-31.0); Mean Corpuscular Volume 88.2 fl (78.0-98.0); Mean Platelet Volume 6.9 fL (7.4-10.4); Platelet Count 281 10x3/uL (130-400); RBC Distribution Width 13.4 % (11.5-14.5); Red Blood Cell (RBC) Count 4.46 mill/uL (4.20-5.40); White Blood Cell (WBC) Count 6.9 10x3/uL (4.8-10.8)
[2023-11-15 14:04] LABS: ALT (SGPT) 12 U/L (8-55); AST (SGOT) 9 U/L (5-34); Alkaline Phosphatase 107 U/L (40-110); Anion Gap 17 mmol/L (10-20); BUN (Urea Nitrogen) 41 mg/dL (9.8-20.1); Bilirubin, Total 0.6 mg/dL (0.2-1.2); Calc. Creatinine Clearance 0 mL/min (70-130); Calcium 9.3 mg/dL (7.8-10.44); Carbon Dioxide 20 mmol/L (23-31); Chloride 104 mmol/L (98-107); Estimated GFR 34; Globulin 3.3 g/dL (2.4-3.5); Glucose 340 mg/dL (83-110); Lipase 4 U/L (8-78); Potassium 4.6 mmol/L (3.5-5.1); Protein, Total 7.3 g/dL (5.8-8.1); Sodium 136 mmol/L (136-145)
[2023-11-15 14:40] LABS: Bilirubin Negative (Negative); Blood, Urine Trace (Negative); Clarity Slightly Cloudy (Clear); Glucose, Urine (Dipstick) 500 mg/dL (Negative); Ketone, Urine Trace mg/dL (Negative); Leukocyte Negative (Negative); Nitrite Positive (Negative); Protein, Urine (Dipstick) 30 mg/dL (Neg-Trace); Specific Gravity, Urine 1.025 (1.005-1.030); Urobilinogen 0.2 mg/dL (Less than 2); pH, Urine 5.5 (5.0-9.0)
[2023-11-15 14:55] LABS: CAUTI Indications for Culture Pelvic or flank pain; Urine Culture Reflex No No
[2023-11-15 14:56] LABS: Bacteria/HPF Rare-Few HPF (None Seen); RBC/HPF None Seen HPF (0-3)
[2023-11-15 14:57] LABS: Yeast-Budding 1+ HPF (None Seen); Yeast-Hyphae 2+ HPF (None Seen)
[2023-11-15] MEDS ORDERED: Meropenem 1 GM VIAL ONE (15:13)
[2023-11-15] MEDS ORDERED: Sodium Chloride 0.9% 100 ML ONE (15:13)
[2023-11-15] MEDS ORDERED: Ketorolac Tromethamine 30 MG (1 mL) VIAL ONE ×2 (15:40)
[2023-11-15] MEDS ORDERED: Gabapentin 100 MG CAP ONE (15:40)
== END 2023-11-15 19:34 | disposition short-term general hospital (02) ==
LOC: NAV ERS 13:18
DX: N39.0 Urinary tract infection, site not specified (principal); G89.4 Chronic pain syndrome; I10 Essential (primary) hypertension; E78.5 Hyperlipidemia, unspecified; E11.40 Type 2 diabetes mellitus with diabetic neuropathy, unspecified; J44.9 Chronic obstructive pulmonary disease, unspecified; K21.9 Gastro-esophageal reflux disease without esophagitis; Z79.899 Other long term (current) drug therapy
CPT/HCPCS: 36415; 80053; 81001; 83605; 83690; 83735; 85025; 87077; 87086; 87186; 94760; 96365; 96375; J1885; J2185

== ENCOUNTER 2023-12-24 10:19 | Emergency (ER) | payer MEDICARE ==
[2023-12-24 11:48] LABS: #Basophils 0.1 thou/uL (0.0-0.2); #Eosinphils 0.3 thou/uL (0.0-0.7); #Lymphocytes 1.6 thou/uL (1.20-3.40); #Monocytes 0.7 thou/uL (0.11-0.59); #Neutrophils 5.5 thou/uL (1.40-6.50); %Basophils 0.8 % (0.0-1.0); %Eosinophils 3.4 % (0.0-10.0); %Lymphocytes 19.5 % (21.0-51.0); %Monocytes 8.1 % (0.0-10.0); %Neutrophils 68.2 % (42.0-75.0); Hematocrit 35.9 % (36.0-47.0); Mean Corpuscular HGB CONC 30.7 g/dL (32.0-36.0); Mean Corpuscular Hemoglobin 26.9 pg (27.0-31.0); Mean Corpuscular Volume 87.6 fl (78.0-98.0); Mean Platelet Volume 6.7 fL (7.4-10.4); Platelet Count 233 10x3/uL (130-400); RBC Distribution Width 12.6 % (11.5-14.5)
[2023-12-24 12:02] LABS: Troponin I Less than 0.010 ng/mL (< 0.028)
[2023-12-24 12:10] LABS: ALT (SGPT) 8 U/L (8-55); AST (SGOT) 7 U/L (5-34); Albumin 3.8 g/dL (3.4-4.8); Alkaline Phosphatase 142 U/L (40-110); Anion Gap 17 mmol/L (10-20); BUN (Urea Nitrogen) 41 mg/dL (9.8-20.1); Bilirubin, Total 0.3 mg/dL (0.2-1.2); Calc. Creatinine Clearance 0 mL/min (70-130); Calcium 9.7 mg/dL (7.8-10.44); Carbon Dioxide 21 mmol/L (23-31); Chloride 107 mmol/L (98-107); Estimated GFR 39; Glucose 363 mg/dL (83-110); Protein, Total 6.8 g/dL (5.8-8.1); Sodium 140 mmol/L (136-145)
[2023-12-24 13:02] LABS: Bilirubin Negative (Negative); Blood, Urine Negative (Negative); Clarity Clear (Clear); Glucose, Urine (Dipstick) >=1000 mg/dL (Negative); Ketone, Urine Negative (Negative); Leukocyte Negative (Negative); Nitrite Positive (Negative); Protein, Urine (Dipstick) Negative (Neg-Trace); Specific Gravity, Urine 1.015 (1.005-1.030); Urobilinogen 0.2 mg/dL (Less than 2); pH, Urine 5.5 (5.0-9.0)
[2023-12-24 13:10] LABS: Bacteria/HPF 2+ HPF (None Seen); CAUTI Indications for Culture Dysuria,urgency,freq; RBC/HPF None Seen HPF (0-3); WBC/HPF 0-3 HPF (0-3)
[2023-12-24 13:11] LABS: Urine Culture Reflex No No
[2023-12-24] MEDS ORDERED: cefTRIAXone (ROCEPHIN) 1 GM VIAL ONE (13:39)
== END 2023-12-24 14:19 | disposition home or self-care (01) ==
LOC: NAV ERS 10:19
DX: N39.0 Urinary tract infection, site not specified (principal); E11.65 Type 2 diabetes mellitus with hyperglycemia; M79.10 Myalgia, unspecified site; J44.9 Chronic obstructive pulmonary disease, unspecified; I10 Essential (primary) hypertension; E11.40 Type 2 diabetes mellitus with diabetic neuropathy, unspecified; E78.5 Hyperlipidemia, unspecified; K21.9 Gastro-esophageal reflux disease without esophagitis; Z79.899 Other long term (current) drug therapy
CPT/HCPCS: 71045; 80053; 81001; 83880; 84484; 85025; 85379; 87077; 87086; 93005; 96372; 99285; J0696; 87186

== ENCOUNTER 2024-01-23 03:58 | Emergency (ER) | payer MEDICARE ==
[2024-01-23] MEDS ORDERED: Acetaminophen 500 MG TAB ONE (04:29)
== END 2024-01-23 04:43 | disposition home or self-care (01) ==
LOC: NAV ERS 03:58
DX: M54.50 Low back pain, unspecified (principal); E11.40 Type 2 diabetes mellitus with diabetic neuropathy, unspecified; I10 Essential (primary) hypertension; J44.9 Chronic obstructive pulmonary disease, unspecified
CPT/HCPCS: 99283

== ENCOUNTER 2024-02-05 07:04 | Emergency (ER) | payer MEDICARE ==
[2024-02-05] MEDS ORDERED: Acetaminophen 500 MG TAB ONE (07:40)
[2024-02-05] MEDS ORDERED: Lidocaine 4% Patch TD SCH (08:00)
[2024-02-05] MEDS ORDERED: Transdermal Patch Removal TOP SCH (20:00)
== END 2024-02-05 08:38 | disposition home or self-care (01) ==
LOC: NAV ERS 07:04
DX: M54.50 Low back pain, unspecified (principal); J44.9 Chronic obstructive pulmonary disease, unspecified; E11.9 Type 2 diabetes mellitus without complications; I10 Essential (primary) hypertension; Z55.6 Problems related to health literacy
CPT/HCPCS: 99283

== ENCOUNTER 2025-02-23 16:53 | Emergency (ER) | payer MEDICARE, MEDICAID ==
[2025-02-23 17:23] LABS: #Basophils 0.1 thou/uL (0.0-0.2); #Eosinophils 0.3 thou/uL (0.0-0.7); #Lymphocytes 1.5 thou/uL (1.20-3.40); #Monocytes 0.5 thou/uL (0.11-0.59); #Neutrophils 5.2 thou/uL (1.40-6.50); %Basophils 0.8 % (0.0-1.0); %Eosinophils 3.8 % (0.0-10.0); %Lymphocytes 19.5 % (21.0-51.0); %Monocytes 6.9 % (0.0-10.0); %Neutrophils 68.9 % (42.0-75.0); Hematocrit 30.3 % (36.0-47.0); Hemoglobin 10.2 g/dL (12.0-16.0); Mean Corpuscular Hemoglobin 28.7 pg (27.0-31.0); Mean Corpuscular Volume 85.7 fl (78.0-98.0); Platelet Count 288 10x3/uL (130-400); Red Blood Cell (RBC) Count 3.54 mill/uL (4.20-5.40); White Blood Cell (WBC) Count 7.6 10x3/uL (4.8-10.8)
[2025-02-23 17:34] LABS: INR-International Normal Ratio 1.9; Prothrombin Time 22.1 sec (12.0-14.7)
[2025-02-23 17:35] LABS: PTT 46.8 sec (22.9-36.1)
[2025-02-23 17:36] LABS: Anion Gap 19 mmol/L (10-20); BUN (Urea Nitrogen) 28 mg/dL (9.8-20.1); Bilirubin, Total 0.4 mg/dL (0.3-1.2); Calc. Creatinine Clearance 0 mL/min (70-130); Calcium 9.0 mg/dL (7.8-10.44); Carbon Dioxide 22 mmol/L (23-31); Chloride 109 mmol/L (98-107); Glucose 142 mg/dL (83-110); Potassium 4.1 mmol/L (3.5-5.1); Sodium 146 mmol/L (136-145)
[2025-02-23 17:37] LABS: ALT (SGPT) 10 U/L (Less than 34); AST (SGOT) 20 U/L (11-34); Albumin 3.6 g/dL (3.1-4.5); Alkaline Phosphatase 113 U/L (40-110); Globulin 3.2 g/dL (2.4-3.5)
[2025-02-23] MEDS ORDERED: KETAMINE 100 MG/ML (5ML VIAL) ONE (18:20)
== END 2025-02-23 20:13 | disposition short-term general hospital (02) ==
LOC: NAV ERS 16:53
DX: S12.040A Displaced lateral mass fracture of first cervical vertebra, initial encounter for closed fracture (principal); S12.100A Unspecified displaced fracture of second cervical vertebra, initial encounter for closed fracture; S12.600A Unspecified displaced fracture of seventh cervical vertebra, initial encounter for closed fracture; S00.03XA Contusion of scalp, initial encounter; I10 Essential (primary) hypertension; E11.40 Type 2 diabetes mellitus with diabetic neuropathy, unspecified; Z79.899 Other long term (current) drug therapy; Z79.84 Long term (current) use of oral hypoglycemic drugs; Z79.01 Long term (current) use of anticoagulants; Z79.4 Long term (current) use of insulin; J44.9 Chronic obstructive pulmonary disease, unspecified; W05.0XXA Fall from non-moving wheelchair, initial encounter
CPT/HCPCS: 70450; 72125; 80053; 85025; 85610; 85730; J3010; 96374; 96375; 96376; G0390

== ENCOUNTER 2025-03-08 06:25 | Emergency (ER) | payer MEDICARE, MEDICAID | END 2025-03-08 08:17 | LOC: NAV ERS 06:25 | DX: F03.90 Unspecified dementia, unspecified severity, without behavioral disturbance, psychotic disturbance, mood disturbance, and anxiety (principal); R45.88 Nonsuicidal self-harm; S12.000D Unspecified displaced fracture of first cervical vertebra, subsequent encounter for fracture with routine healing; S00.83XD Contusion of other part of head, subsequent encounter; E11.9 Type 2 diabetes mellitus without complications; I10 Essential (primary) hypertension; J44.9 Chronic obstructive pulmonary disease, unspecified; W19.XXXD Unspecified fall, subsequent encounter | CPT/HCPCS: 99283 ==